=== PATIENT | female | born 1940 | race Caucasian/White ===

== ENCOUNTER 2017-06-20 12:04 | Emergency (ER) | payer OTHER, SELFPAY | END 2017-06-20 14:48 | disposition home or self-care (01) | PROVIDERS: Family Provider Internal Medicine; PCP Internal Medicine | DX: S67.190A Crushing injury of right index finger, initial encounter (principal); S61.210A Laceration without foreign body of right index finger without damage to nail, initial encounter; W23.0XXA Caught, crushed, jammed, or pinched between moving objects, initial encounter | CPT/HCPCS: 12002; 29130; 73140; 99282 ==

== ENCOUNTER → 2017-10-07 09:29 | Outpatient (CLI) | payer OTHER, SELFPAY ==
[2017-10-07 11:28] LABS: Alanine Aminotransferase 25 IU/L (9-52); Albumin 4.7 g/dL (3.5-5.0); Albumin Globulin Ratio 1.7 (1.0-2.8); Alkaline Phosphatase 72 U/L (38-126); Aspartate Aminotransferase 21 IU/L (14-36); BUN Creatinine Ratio 15.5 (6-22); Bilirubin Total 0.7 mg/dL (0.2-1.3); Blood Urea Nitrogen 17 mg/dL (7-17); Calcium 10.2 mg/dL (8.4-10.2); Carbon Dioxide 31 mmol/L (22-32); Chloride 99 mmol/L (98-107); Estimated Glomerular Filt Rate 48.4 mL/min (>60); Globulin 2.8 g/dL (1.7-4.1); Glucose 123 mg/dL (80-110); HEMOLYSIS < 15 (0-50); Magnesium 2.1 mg/dL (1.6-2.3); Potassium 5.3 mmol/L (3.4-5.1); Sodium 140 mmol/L (137-145); Total Protein 7.5 g/dL (6.3-8.2)
[2017-10-09 14:40] LABS: Lipoprofile NMR SEE SEPARATE REPORTS
== END ==
PROVIDERS: PCP Internal Medicine; Visit Provider Specialist
DX: I48.0 Paroxysmal atrial fibrillation (principal); E78.2 Mixed hyperlipidemia
CPT/HCPCS: 36415; 80053; 83704; 83735

== ENCOUNTER → 2018-03-28 12:01 | Outpatient (CLI) | payer OTHER, SELFPAY ==
--- NOTE | 2018-03-28 | DI.US.S_ITS ---
PROCEDURE: US RENAL COMPLETE INDICATIONS: CHRONIC KIDNEY DISEASE TECHNIQUE: Real-time scanning was performed of the kidneys and bladder, with image documentation. COMPARISON: None. FINDINGS: Kidneys: Kidneys are normal in size. Right kidney measures 9.7 cm long; left kidney measures 7.6 cm long. Right renal cortical thickness is 1.1 cm; left renal cortical thickness is 1.4 cm. Renal cortical echotexture is normal. No hydronephrosis or nephrolithiasis. No suspicious solid mass lesions. Bladder: Pre-void bladder volume is 243 mL. Post-void residual is 8 mL. Pre-void images demonstrate no intraluminal masses or stones. On pre-void images, both ureteral jets are noted with color Doppler interrogation. (Of note, ureteral jets may not be detectable in up to 25% of cases due to insufficient differences in specific gravity between ureteral and bladder urine). Miscellaneous: No free pelvic fluid. Shadowing gallstones are incidentally noted. IMPRESSION: Small left kidney size. No hydronephrosis. Small postvoid residual (8 cc). Gallstones incidentally noted. Dictated by: Eliezer Conde M.D. on 03/28/2018 at 13:15 Approved by: Eliezer Conde M.D. on 03/28/2018 at 13:16
== END ==
PROVIDERS: Family Provider Internal Medicine; PCP Internal Medicine; Visit Provider Student in an Organized Health Care Education/Training Program
DX: N18.9 Chronic kidney disease, unspecified (principal); K80.80 Other cholelithiasis without obstruction
CPT/HCPCS: 76770

== ENCOUNTER → 2018-04-23 10:35 | Outpatient (CLI) | payer OTHER, SELFPAY ==
[2018-04-23 10:48] LABS: Bacteria Urine None Seen; RBC Urine None Seen (0-5/HPF)
[2018-04-23 12:04] LABS: HEMOLYSIS < 15 (0-50); Iron 111 ug/dL (37-170)
[2018-04-23 12:05] LABS: BUN Creatinine Ratio 15.6 (6-22); Blood Urea Nitrogen 14 mg/dL (7-17); Calcium 9.6 mg/dL (8.4-10.2); Carbon Dioxide 29 mmol/L (22-32); Chloride 100 mmol/L (98-107); Estimated Glomerular Filt Rate > 60.0 mL/min (>60); Glucose 116 mg/dL (80-110); HEMOLYSIS < 15 (0-50); Phosphorous 4.5 mg/dL (2.8-4.1); Potassium 4.6 mmol/L (3.4-5.1); Sodium 141 mmol/L (137-145)
[2018-04-23 12:16] LABS: Percent Iron Saturation 36 % (15-50); Total Iron Binding Capacity 312 ug/dL (265-497); Transferrin 241 mg/dL (206-381)
[2018-04-23 12:42] LABS: Ferritin 29.3 ng/mL (11.1-264)
[2018-04-23 13:56] LABS: Appearance Urine UA CLEAR; Bilirubin Urine UA NEGATIVE (NEGATIVE); Color Urine UA YELLOW; Glucose Urine UA NEGATIVE (Negative); Ketones Urine UA NEGATIVE (NEGATIVE); Leukocyte Esterase Urine UA NEGATIVE (NEGATIVE); Nitrite Urine UA NEGATIVE (Negative); Occult Blood Urine UA NEGATIVE (Negative); Protein Urine UA NEGATIVE (Negative); Specific Gravity Urine UA 1.015 (1.000-1.035); Urobilinogen Urine UA 0.2 E.U./dL (0.2)
[2018-04-23 14:15] LABS: Culture Indicated Urine Cult Not Indicated; Squamous Epithelial Cell Urine 0-1 /HPF; WBC Urine 0-1/HPF (0-5/HPF)
[2018-04-23 18:01] LABS: Creatinine Urine Random 97.3 mg/dL; Protein (Total) Urine Random 8 mg/dL (0-12); Protein Creatinine Ratio Urine 0.08 GRAM/24H
[2018-04-26 15:58] LABS: Parathyroid Hormone Int 53 pg/mL (14-64)
== END ==
PROVIDERS: PCP Internal Medicine; Visit Provider Student in an Organized Health Care Education/Training Program
DX: N05.9 Unspecified nephritic syndrome with unspecified morphologic changes (principal); D50.0 Iron deficiency anemia secondary to blood loss (chronic); E83.30 Disorder of phosphorus metabolism, unspecified; N30.00 Acute cystitis without hematuria; R80.9 Proteinuria, unspecified
CPT/HCPCS: 36415; 80048; 81001; 82570; 82728; 83540; 83550; 83970; 84100; 84156

== ENCOUNTER 2018-06-11 12:17 | Day surgery (SDC) | payer OTHER, SELFPAY ==
--- NOTE | 2018-06-11 | PATH_ITS ---
[facility] Accession Number: [id number] . 01 Material submitted: . sigmoid colon - SIGMOID POLYP . 02 Diagnosis: Sigmoid Colon, Polyp, Biopsy: Favor hyperplastic polyp. [facility] . 02 Electronically signed: . Eleanor Trevino MD, Pathologist NPI- [id number] . 01 Gross description: . SIGMOID POLYP: Received in formalin is 1 fragment(s) of agrcia, soft tissue measuring 0.3 x 0.2 x 0.1 cm which is entirely submitted and submitted entirely in 1 cassette(s) /DMC /DMC . 02 Pathologist provided ICD-10: K63.5 . 02 CPT . 074142 Performed at: 01 [facility] [address] [id number] MD Timo Carrera MD Phone: [phone] Performed at: 02 [facility] [address] [place], [place] [id number] MD Eleanor Trevino MD Phone: [phone]
[2018-06-11 13:07] VITALS: BMI 22.0
[2018-06-11 13:11] VITALS: BP 131/66; PULSE 65; RESP 20; TEMP 36.2; O2SAT 98
[2018-06-11] MEDS: SODIUM CHLORIDE 0.9% 1,000 ML 70 ML IV (13:25)
[2018-06-11 13:27] VITALS: BMI 22.0
--- NOTE | 2018-06-11 13:45 | P.HP_ITS ---
History of Present Illness Date Patient Seen: 06/11/18 Chief complaint: [id number] Colonoscopy Narrative: 78-year-old female on Xarelto for atrial fibrillation who is here for colon cancer screening. There is a family history of colon cancer in her father. Please refer to our office note 05/20/2018 for further details Patient History Social History household members: spouse Family & Social History Social History: household members spouse Meds Home Medications Medication Instructions Recorded Confirmed Type atorvastatin 40 mg PO DAILY 06/11/18 06/11/18 History calcium carbonate [Tums] 600 mg PO BID 06/11/18 06/11/18 History diltiazem HCl 120 mg PO DAILY 06/11/18 06/11/18 History esomeprazole magnesium [Nexium] 20 mg PO DAILY 06/11/18 06/11/18 History flecainide 100 mg PO Q12H 06/11/18 06/11/18 History losartan 25 mg PO DAILY 06/11/18 06/11/18 History metformin 500 mg PO BID 06/11/18 06/11/18 History multivitamin 1 cap PO DAILY 06/11/18 06/11/18 History [id number] acid-lutein [Diabetes 1 tab PO DAILY 06/11/18 06/11/18 History Health Formula] rivaroxaban [Xarelto] 20 mg PO QPM 06/11/18 06/11/18 History Allergies Allergy/AdvReac Type Severity Reaction Status Date / Time Sulfa (Sulfonamide Allergy Mild Hives Verified 06/11/18 13:02 Antibiotics) [SULFA (SULFONAMIDE ANTIBIOTICS)] ibuprofen Allergy Unknown Passed out Verified 06/11/18 13:02 naproxen [From Aleve] Allergy Unknown Passed out Verified 06/11/18 13:02 Exam Vital Signs (past 8 hours): - 06/11/18 13:11 Temperature 97.1 F L Pulse Rate 65 Respiratory Rate 20 Blood Pressure 131/66 Pulse Oximetry 98 Oxygen Delivery Method Room Air Narrative Exam Narrative: General: Patient is well developed, not in apparent distress Cardiovascular: Normal oral, no murmurs, rubs, or gallops; no evidence of edema; no palpable abdominal aortic aneurysm Gastrointestinal: Normoactive bowel sounds, soft, nontender, nondistended, no rebound tenderness, no hepatosplenomegaly, no evidence of hernia Assessment & Plan Assessment & Plan narrative: 78-year-old with a history of anticoagulation for atrial fibrillation and a family history of colon cancer in her father who is here for colon cancer screening. Regarding the procedure(s), the risks and potential complications, benefits, and alternatives (including not doing the procedure) were discussed with the lázaro ent. The risks include but are not limited to bleeding, splenic injury, infection, perforation which may require surgical intervention, missed lesions, and adverse reactions to sedative medicines. After a question and answer period, the patient agreed to proceed with the procedure(s) and gives informed consent.
--- NOTE | 2018-06-11 13:58 | PM.OP.ENDO ---
Operative Date/Time/Diagnoses Date of procedure: 06/11/18 Procedure Notes Procedure in detail: Surgeon: Wang Flores MD Procedure: Colonoscopy with polypectomy Preoperative diagnosis: Colon cancer screening, family history colon cancer in her father (>65) Postoperative diagnosis: Sigmoid polyp status post polypectomy, grade 2 internal hemorrhoids Medications: Conscious sedation using 3 mg IV of Midazolam and 100 mcg IV of Fentanyl Preanesthesia Assessment An H and P was performed/updated and the Px?s ASA class is 2. The procedure was discussed in detail with the patient. The potential risks and complications including infection, bleeding, missed lesions, perforation, need for surgery in case of perforation, prolonged hospital stay, and were explained. A brief question and answer period was allotted and once all questions were answered, informed consent was obtained. The patient was brought back to the procedure room and placed on standard monitoring. The patient?s vital signs were monitored continuously throughout the entire procedure. Prior to starting, a timeout was performed to confirm the patient?s identity, allergies, medications, and procedure. Procedure in detail The patient was placed in left lateral decubitus position and once adequate sedation was obtained a DEBBIE was performed. The digital rectal examination did not reveal any palpable lesions. The tip of the colonoscope was placed in the anal canal and advanced without difficulty all the way to the cecum which was identified by the appendiceal orifice and the ileocecal valve. Careful examination of all lackey of the colon was performed with irrigation of any residual stool. The patient tolerated the procedure well and will be brought back to the recovery area to be discharged once criteria are met. The prep was judged to be good/excellent and adequate to identify polyps less than 5 mm. The withdrawal time was 8 minutes. The total physician intraservice time was 14 minutes. Complications There were no complications and estimated blood loss was minimal. Recommendations: Resume previous diet Continue outPx medications; restart Xarelto today Follow up pathology results Consider repeat colonoscopy in 5 years if the polyp is adenomatous; otherwise no further screening recommended If you have any trouble with your hemorrhoids, feel free to call our office to make an appointment so you can be evaluated to see if you would be a good candidate for hemorrhoid banding An emergency contact number was given to the patient for any complications related to the procedure
[2018-06-11] MEDS: fentaNYL 250 MCG/5 ML INJ IV (14:18)
[2018-06-11] MEDS: MIDAZOLAM 5 MG/5 ML VIAL IV (14:18)
[2018-06-11 14:25] VITALS: BP 145/64; PULSE 65; RESP 14; TEMP 36.6; O2SAT 97
--- NOTE | 2018-06-11 14:27 | PM.DS.1 ---
History of Present Illness Chief complaint: [id number] Colonoscopy Narrative: 78-year-old female on Xarelto for atrial fibrillation who is here for colon cancer screening. There is a family history of colon cancer in her father. Please refer to our office note 05/20/2018 for further details Discharge Providers Discharge Date: 06/11/18 Primary care physician: Natali Fuller MD Discharge provider: Wang Flores MD Exam Vital Signs (past 8 hours): - 06/11/18 13:11 Temperature 97.1 F L Pulse Rate 65 Respiratory Rate 20 Blood Pressure 131/66 Pulse Oximetry 98 Oxygen Delivery Method Room Air Narrative Exam Narrative: General: Patient is well developed, not in apparent distress Cardiovascular: Normal rate, no murmurs, rubs, or gallops; no evidence of edema; no palpable abdominal aortic aneurysm Gastrointestinal: Normoactive bowel sounds, soft, nontender, nondistended, no rebound tenderness, no hepatosplenomegaly, no evidence of hernia Discharge Plan Discharge Plan Patient Disposition: Home Discharge Med Rec/Prescriptions Prescriptions: Continued atorvastatin 40 mg Tablet 40 mg PO DAILY RF: 0 calcium carbonate [Tums] 300 mg (750 mg) Tablet,Chewable 600 mg PO BID RF: 0 diltiazem HCl 120 mg Tablet 120 mg PO DAILY RF: 0 metformin 1,000 mg Tablet 500 mg PO BID RF: 0 losartan 25 mg Tablet 25 mg PO DAILY RF: 0 flecainide 100 mg Tablet 100 mg PO Q12H RF: 0 multivitamin Capsule 1 cap PO DAILY RF: 0 esomeprazole magnesium [Nexium] 20 mg Capsule,Delayed Release(Dr/Ec) 20 mg PO DAILY RF: 0 Diabetes Health Formula 500-250 mcg Tablet 1 tab PO DAILY RF: 0 Xarelto 20 mg Tablet 20 mg PO QPM RF: 0 Follow up/Referrals: Natali Fuller MD [Primary Care Provider] - Discharge Orders: Discharge (Order); Ordered 06/11/18 Ordered By: Wang Flores Provider Discharge Instructions Diet: Diet as Tolerated Visit Report/Discharge Packet Stand Alone Forms: Colonoscopy Result: [facility] Discharge Data Primary Care Provider: Natali Fuller Attending Provider: Wang Flores
--- NOTE | 2018-06-11 14:28 | OP_ITS ---
Operative Date/Time/Diagnoses Date of procedure: 06/11/18 Procedure Notes Procedure in detail: Surgeon: Wang Flores MD Procedure: Colonoscopy with polypectomy Preoperative diagnosis: Colon cancer screening, family history colon cancer in her father (>65) Postoperative diagnosis: Sigmoid polyp status post polypectomy, grade 2 internal hemorrhoids Medications: Conscious sedation using 3 mg IV of Midazolam and 100 mcg IV of Fentanyl Preanesthesia Assessment An H and P was performed/updated and the Px?s ASA class is 2. The procedure was discussed in detail with the patient. The potential risks and complications including infection, bleeding, missed lesions, perforation, need for surgery in case of perforation, prolonged hospital stay, and were explained. A brief question and answer period was allotted and once all questions were answered, informed consent was obtained. The patient was brought back to the procedure room and placed on standard monitoring. The patient?s vital signs were monitored continuously throughout the entire procedure. Prior to starting, a timeout was performed to confirm the patient?s identity, allergies, medications, and procedure. Procedure in detail The patient was placed in left lateral decubitus position and once adequate sedation was obtained a DEBBIE was performed. The digital rectal examination did not reveal any palpable lesions. The tip of the colonoscope was placed in the anal canal and advanced without difficulty all the way to the cecum which was identified by the appendiceal orifice and the ileocecal valve. Careful examination of all lackey of the colon was performed with irrigation of any residual stool. In the sigmoid colon, there was a 2 mm sessile polyp removed by means of cold jumbo forceps. Resection and retrieval was complete with minimal bleeding. Retroflexion was performed in the rectum which revealed grade 2 internal hemorrhoids. The patient tolerated the procedure well and will be brought back to the recovery area to be discharged once criteria are met. The prep was judged to be good/excellent and adequate to identify polyps less than 5 mm. The withdrawal time was 8 minutes. The total physician intraservice time was 14 minutes. Complications There were no complications and estimated blood loss was minimal. Recommendations: Resume previous diet Continue outPx medications; restart Xarelto today Follow up pathology results Consider repeat colonoscopy in 5 years if the polyp is adenomatous; otherwise no further screening recommended If you have any trouble with your hemorrhoids, feel free to call our office to make an appointment so you can be evaluated to see if you would be a good candidate for hemorrhoid banding An emergency contact number was given to the patient for any complications related to the procedure Signed By:<Electronically signed by Wang Flores MD>06/11/18 [id number]
[2018-06-11 14:30] VITALS: BP 114/52; PULSE 67; RESP 12; O2SAT 97
[2018-06-11 14:35] VITALS: BP 134/67; PULSE 79; RESP 12; O2SAT 97
[2018-06-11 14:36] VITALS: BP 138/78; PULSE 67; RESP 18; TEMP 36.4; O2SAT 98
[2018-06-11 15:00] VITALS: BP 154/71; PULSE 76; TEMP 36.2; O2SAT 96
== END 2018-06-11 15:12 | disposition home or self-care (01) ==
PROVIDERS: PCP Internal Medicine; Visit Provider Internal Medicine Gastroenterology
PROC: 0DJD8ZZ Inspection of Lower Intestinal Tract, Via Natural or Artificial Opening Endoscopic (ICD-10-PCS; CPT 45378; principal; 2018-06-11 14:00)
DX: Z12.11 Encounter for screening for malignant neoplasm of colon (principal); Z80.0 Family history of malignant neoplasm of digestive organs; K64.1 Second degree hemorrhoids; E11.9 Type 2 diabetes mellitus without complications; I10 Essential (primary) hypertension; Z79.01 Long term (current) use of anticoagulants; I48.0 Paroxysmal atrial fibrillation; D12.5 Benign neoplasm of sigmoid colon
CPT/HCPCS: 45380; J2250; J3010

== ENCOUNTER → 2018-06-18 10:31 | Outpatient (CLI) | payer OTHER, SELFPAY ==
--- NOTE | 2018-06-18 10:36 | DI.MG.S_ITS ---
BILATERAL DIGITAL SCREENING MAMMOGRAM 3D/2D WITH CAD: 06/18/2018 CLINICAL: Routine screening. Family history of breast cancer. Comparison is made to exams dated: 09/02/2015 mammogram, 08/30/2014 mammogram, and 08/18/2013 mammogram - [facility]. The tissue of both breasts is heterogeneously dense. This may lower the sensitivity of mammography. Current study was also evaluated with a Computer Aided Detection (CAD) system. No significant masses, calcifications, or other findings are seen in either breast. There has been no significant interval change. IMPRESSION: NEGATIVE There is no mammographic evidence of malignancy. A 1 year screening mammogram is recommended. This exam was interpreted at Station ID: [id number]. NOTE: For mammograms, a report in lay terms will be sent to the patient. Approximately 15% of breast malignancies will not be visualized mammographically. In the management of a palpable breast mass, a negative mammogram must not discourage biopsy of a clinically suspicious lesion. Electronically Signed By: Benjy saavedra/zhang:06/19/2018 11:25:16 letter sent: Normal Exam ACR BI-RADS Category 1: Negative [id number]
[2018-06-18 12:23] LABS: Alanine Aminotransferase 22 IU/L (9-52); Albumin 4.5 g/dL (3.5-5.0); Albumin Globulin Ratio 1.7 (1.0-2.8); Alkaline Phosphatase 70 U/L (38-126); Aspartate Aminotransferase 24 IU/L (14-36); Bilirubin Total 0.6 mg/dL (0.2-1.3); Blood Urea Nitrogen 14 mg/dL (7-17); Calcium 9.5 mg/dL (8.4-10.2); Carbon Dioxide 30 mmol/L (22-32); Chloride 100 mmol/L (98-107); Estimated Glomerular Filt Rate 53.9 mL/min (>60); Globulin 2.6 g/dL (1.7-4.1); Glucose 114 mg/dL (80-110); HEMOLYSIS < 15 (0-50); Magnesium 1.7 mg/dL (1.6-2.3); Potassium 4.4 mmol/L (3.4-5.1); Sodium 140 mmol/L (137-145); Total Protein 7.1 g/dL (6.3-8.2)
[2018-06-23 13:17] LABS: Lipoprofile NMR SEE SEPERATE REPORT
== END ==
PROVIDERS: PCP Internal Medicine; Referring Provider Specialist; Visit Provider Internal Medicine
DX: Z12.31 Encounter for screening mammogram for malignant neoplasm of breast (principal); Z80.3 Family history of malignant neoplasm of breast; I48.0 Paroxysmal atrial fibrillation; E78.2 Mixed hyperlipidemia; I10 Essential (primary) hypertension
CPT/HCPCS: 36415; 77063; 77067; 80053; 80299; 83704; 83735

== ENCOUNTER 2018-06-29 07:32 | Emergency (ER) | payer OTHER, SELFPAY ==
[2018-06-29 07:38] VITALS: BP 139/60; PULSE 66; RESP 12; TEMP 36.6; O2SAT 97
--- NOTE | 2018-06-29 07:55 | PC.NURSE ---
ekg@ [id number], given to dian
--- NOTE | 2018-06-29 08:52 | ED.EXTPRO ---
HPI - Extremity Problem General Chief complaint: Extremity Problem,Nontraumatic Stated complaint: thinks blood clot in left leg Time Seen by Provider: 06/29/18 08:49 Source: patient Mode of arrival: ambulatory Limitations: no limitations History of Present Illness HPI Narrative: This is a 78-year-old female comes to the emergency department with concern for DVT. Patient states about 2 weeks ago, 2 weeks last Saturday patient was on a step stool, she stepped backwards in the stool slipped out from underneath her and the leg of the stool hit her in her left leg. She had some bruising and has developed some lumps on her leg. She was told by multiple people yesterday that they thought she had a blood clot. Patient states it is slightly tender in the area. There has not been any redness. She has not had any swelling otherwise in her leg. She is able to walk and ambulate without issue. She states when she fell she did land on her buttocks and struck the back of her head although she states it was lightly. She states she had a little bit of tenderness but that has resolved. She denies any loss of consciousness, no headache, no vision changes, no nausea or vomiting she has had diarrhea chronically since she was started on metformin. She denies any urinary issues or other injuries. Patient does take Xarelto once daily for atrial fibrillation, she also has diabetes which is why she takes metformin as well as medication for blood pressure and a statin. Related Data Home Medications Medication Instructions Recorded Confirmed Diabetes Health Formula 1 tab PO DAILY 06/11/18 06/11/18 Xarelto 20 mg PO QPM 06/11/18 06/11/18 atorvastatin 40 mg PO DAILY 06/11/18 06/11/18 calcium carbonate [Tums] 600 mg PO BID 06/11/18 06/11/18 diltiazem HCl 120 mg PO DAILY 06/11/18 06/11/18 esomeprazole magnesium [Nexium] 20 mg PO DAILY 06/11/18 06/11/18 flecainide 100 mg PO Q12H 06/11/18 06/11/18 losartan 25 mg PO DAILY 06/11/18 06/11/18 metformin 500 mg PO BID 06/11/18 06/11/18 multivitamin 1 cap PO DAILY 06/11/18 06/11/18 Allergies Allergy/AdvReac Type Severity Reaction Status Date / Time Sulfa (Sulfonamide Allergy Mild Hives Verified 06/11/18 13:02 Antibiotics) [SULFA (SULFONAMIDE ANTIBIOTICS)] ibuprofen Allergy Unknown Passed out Verified 06/11/18 13:02 naproxen [From Aleve] Allergy Unknown Passed out Verified 06/11/18 13:02 Review of Systems Review of Systems ROS Unobtainable: All systems reviewed & are unremarkable except as noted in HPI and below Constitutional Denies headache(s) and Denies weakness Eyes Denies change in vision ENT Ears, Nose, Mouth, and Throat: Denies headache(s) and Denies neck pain Cardiovascular Denies chest pain, Denies syncope, Denies pedal edema, Denies edema, Denies palpitations and Denies dyspnea Respiratory Denies dyspnea Gastrointestinal Gastrointestinal: Denies abdominal pain, Denies change in bowel habits, Reports diarrhea, Denies nausea and Denies vomiting Genitourinary Denies hematuria, Denies dysuria, Denies flank pain and Denies urinary urgency Musculoskeletal Reports as per HPI, Denies back pain, Denies limited range of motion, Denies neck pain, Denies numbness, Denies stiffness, Denies tingling and Reports other (left leg has bruising and lumps) Integumentary/Breasts Reports as per HPI, Denies erythema, Denies rash, Reports unusual bruising, Denies wounds and Reports other (bumps/lumps on leg.) Neurologic Denies confusion, Denies syncope, Denies headache(s), Denies numbness, Denies sensory deficit, Denies tingling and Denies weakness Psychiatric Denies confusion Endocrine Denies palpitations [facility] Medical History (Updated 06/29/18 @ 10:28 by Laura Yepez DO) Atrial fibrillation (Chronic) Diabetes (Chronic) Dyslipidemia (Chronic) Social History household members: spouse Social History household members: spouse Exam Narrative Exam Narrative: GEN: well nourished, well appearing female, alert and oriented x 3, patient appears to be in no acute distress. HEENT: Atraumatic, pupils are equal round reactive to light, extraocular movements are intact, nares are clear, TMs are clear with no fluid, there is no conjunctival pallor. Throat is clear without any exudates, erythema, tonsillar enlargement or uvular deviation HEART: Regular rate and rhythm without murmur, clicks, rubs. LUNGS:Lungs clear to auscultation, no wheezes, rales, crackles, chest moves symmetrically ABD:bowel sounds normal, soft, non-tender, no guarding, rebound, rigidity, no masses noted, no hepatosplenomegaly MSCL: Patient has a small lump that is linear in nature over the left lateral calf that is consistent with a thrombophlebitis of a superficial vein. There is some slight bruising over the area that is greenish in color. The patient also has a couple other small areas of bruising on the lower calf that are also sort of greenish in color. No muscle atrophy, muscles strength 5/5 upper and lower extremities, full range of motion, normal gait NEURO:CN 2-12 intact, sensation normal, normal gait. Initial Vital Signs Initial Vital Signs: Vital Signs Temperature 97.8 F 06/29/18 07:38 Pulse Rate 66 06/29/18 07:38 Respiratory Rate 12 06/29/18 07:38 Blood Pressure 139/60 06/29/18 07:38 Pulse Oximetry 97 06/29/18 07:38 Course Orders Ordered: ED Orders 06/29/18 07:52 EKG-12 Lead Stat 06/29/18 09:05 CT head/brain wo con Stat US periph venous low extrem lt Stat Vital Signs - 8 hr 06/29/18 07:38 Temperature 97.8 F Pulse Rate 66 Respiratory Rate 12 Blood Pressure 139/60 Pulse Oximetry 97 MDM - Extremity (Nontraumatic) ECG Data Attestation EKG: I personally reviewed and interpreted this ECG as follows: Prior ECG tracings: available for review Interpretation: Sinus bradycardia with a rate of 57 PA interval 168 QRS of 91 and QTC of 436. Nonspecific ST changes. Patient's prior EKG from 06/24/2015 which has some what similar findings. [facility] Narrative Medical decision making narrative: Discussed with patient based on her history of being on Xarelto even though she had a late injury to the back of her head I would recommend that she have a head CT, I suspect she just has a superficial thrombophlebitis she is on Xarelto but will do a DVT ultrasound to rule out any other changes. Head CT is negative. DVT US is negative. Discharge Plan Departure Patient Disposition: Home Clinical Impression: Hematoma of right thigh Discharge Date/Time: 06/29/18 10:43 Interventions: ED Discharge Assessment Last Done: 06/29/18 10:37 Instructions: DI for Hematoma (Bruise) Activity Restrictions/Additional Instructions: Your head CT and ultrasound of your lower extremities do not show any major changes. You do have a small hematoma or bruise underneath the skin which is where that lump is in your leg. You may take ibuprofen and/or Tylenol as needed for any pain. You may use warm compresses to the affected area to help her hematoma resolved. It will take several weeks for this to completely resolve. Return for signs of infection, new redness, increasing swelling, rapidly increasing pain or other new or concerning symptoms. Prescriptions: No Action atorvastatin 40 mg Tablet 40 mg PO DAILY RF: 0 calcium carbonate [Tums] 300 mg (750 mg) Tablet,Chewable 600 mg PO BID RF: 0 diltiazem HCl 120 mg Tablet 120 mg PO DAILY RF: 0 metformin 1,000 mg Tablet 500 mg PO BID RF: 0 losartan 25 mg Tablet 25 mg PO DAILY RF: 0 flecainide 100 mg Tablet 100 mg PO Q12H RF: 0 multivitamin Capsule 1 cap PO DAILY RF: 0 esomeprazole magnesium [Nexium] 20 mg Capsule,Delayed Release(Dr/Ec) 20 mg PO DAILY RF: 0 Diabetes Health Formula 500-250 mcg Tablet 1 tab PO DAILY RF: 0 Xarelto 20 mg Tablet 20 mg PO QPM RF: 0 Referrals: Natali Fuller MD [Primary Care Provider] -
--- NOTE | 2018-06-29 09:05 | DI.CT.S_ITS ---
PROCEDURE: CT HEAD/BRAIN WO CON INDICATIONS: hit head 2 weeks ago, on xarelto. came for leg. TECHNIQUE: Noncontrast 4.5 mm thick angled axial sections acquired from the foramen magnum to the vertex, with coronal and sagittal reformats. For radiation dose reduction, the following was used: automated exposure control, adjustment of mA and/or kV according to patient size. COMPARISON: 06/24/15. FINDINGS: Image quality: Excellent. CSF spaces: Basal cisterns are patent. No extra-axial fluid collections. The ventricles are symmetric in size and shape. Brain: No intracranial bleeds or masses. Stable coarse calcifications of the pineal gland. There is minimal cerebral volume loss for age, with resultant ventricular and sulcal prominence. There are minimal periventricular and deep white matter chronic small vessel ischemic changes. There is intracranial internal carotid artery atherosclerosis. Skull and face: Calvarium and visualized facial bones appear intact, without suspicious lesions. Sinuses: Visualized sinuses and mastoids are clear. IMPRESSION: Stable CT evaluation of the head without acute intracranial abnormalities. Dictated by: Emil Bruno M.D. on 06/29/2018 at 10:08 Approved by: Emil Bruno M.D. on 06/29/2018 at 10:10
--- NOTE | 2018-06-29 09:05 | DI.US.S_ITS ---
PROCEDURE: US PERIPH VENOUS LOW EXTREM LT INDICATIONS: LEFT LEG SUPERFICIAL THROMBOPHLEBITIS. CONCERN FOR DEEP VEIN TECHNIQUE: Real-time imaging, as well as color and pulse Doppler interrogation, were performed of the lower extremity deep veins from the inguinal ligament to the popliteal fossa. COMPARISON: None. FINDINGS: The common femoral, femoral and popliteal veins are normally compressible, and free of intraluminal thrombus. Color and pulse Doppler demonstrate normal phasic intraluminal flow. There is normal augmentation response to distal compression maneuver. There is a heterogeneous, ill-defined area of subcutaneous hyperechogenicity relative to adjacent subcutaneous fat measuring approximately 3.4 x 0.8 x 1.4 cm. This was noted in the area of injury and may represent a resolving hematoma versus bruising. IMPRESSION: 1. Negative for deep venous thrombosis of the left lower extremity. 2. A 3.4 cm area of relative echogenicity to adjacent subcutaneous fat in the region of patient's pain and injury. This may represent a resolving hematoma/bruise. No internal vascularity or other suspicious findings. Recommend clinical followup for resolution. Dictated by: Emil Bruno M.D. on 06/29/2018 at 10:00 Approved by: Emil Bruno M.D. on 06/29/2018 at 10:02
[2018-06-29 10:37] VITALS: BP 131/62; PULSE 56; O2SAT 97
== END 2018-06-29 10:43 | disposition home or self-care (01) ==
PROVIDERS: Emergency Provider Emergency Medicine; PCP Internal Medicine
DX: S70.12XA Contusion of left thigh, initial encounter (principal); S09.90XA Unspecified injury of head, initial encounter; R19.7 Diarrhea, unspecified; R00.1 Bradycardia, unspecified; E11.9 Type 2 diabetes mellitus without complications; W19.XXXA Unspecified fall, initial encounter; Z79.01 Long term (current) use of anticoagulants; Z79.84 Long term (current) use of oral hypoglycemic drugs
CPT/HCPCS: 70450; 93005; 93041; 93971; 99283; 99284

== ENCOUNTER → 2018-10-28 10:36 | Outpatient (CLI) | payer OTHER, SELFPAY ==
[2018-10-28 11:23] LABS: Hematocrit 38.6 % (36-46); Hemoglobin 12.8 g/dL (12.0-16.0)
[2018-10-28 11:43] LABS: Creatinine Urine Random 46.6 mg/dL; Protein (Total) Urine Random 12 mg/dL (0-12); Protein Creatinine Ratio Urine 0.25 GRAM/24H
[2018-10-28 12:02] LABS: HEMOLYSIS < 15 (0-50); Iron 87 ug/dL (37-170)
[2018-10-28 12:05] LABS: BUN Creatinine Ratio 10.9 (6-22); Blood Urea Nitrogen 12 mg/dL (7-17); Calcium 9.7 mg/dL (8.4-10.2); Carbon Dioxide 29 mmol/L (22-32); Chloride 100 mmol/L (98-107); Estimated Glomerular Filt Rate 48.3 mL/min (>60); Glucose 120 mg/dL (80-110); HEMOLYSIS < 15 (0-50); Potassium 4.8 mmol/L (3.4-5.1); Sodium 141 mmol/L (137-145)
[2018-10-28 12:13] LABS: Percent Iron Saturation 28 % (15-50); Total Iron Binding Capacity 311 ug/dL (265-497); Transferrin 262 mg/dL (206-381)
[2018-10-31 14:53] LABS: Parathyroid Hormone Int 32 pg/mL (14-64)
== END ==
PROVIDERS: PCP Internal Medicine; Visit Provider Student in an Organized Health Care Education/Training Program
DX: N05.9 Unspecified nephritic syndrome with unspecified morphologic changes (principal); D50.0 Iron deficiency anemia secondary to blood loss (chronic); D64.9 Anemia, unspecified; N25.81 Secondary hyperparathyroidism of renal origin; R80.9 Proteinuria, unspecified
CPT/HCPCS: 36415; 80048; 82570; 82728; 83540; 83550; 83970; 84156; 85014; 85018

== ENCOUNTER → 2018-12-31 18:22 | Outpatient (ROUT) | payer OTHER, SELFPAY ==
[2018-12-31 19:07] LABS: Alanine Aminotransferase 17 IU/L (<35); Aspartate Aminotransferase 25 IU/L (14-36); Blood Urea Nitrogen 18 mg/dL (7-17); Carbon Dioxide 29 mmol/L (22-32); Chloride 98 mmol/L (98-107); Cholesterol 186 mg/dL (140-199); Estimated Glomerular Filt Rate 53.9 mL/min (>60); Glucose 108 mg/dL (80-110); HEMOLYSIS < 15 (0-50); Potassium 4.5 mmol/L (3.4-5.1); Sodium 138 mmol/L (137-145); Triglycerides 157 mg/dL (35-150)
[2018-12-31 19:13] LABS: Hemoglobin A1C% w Est Avg Glu 6.1 % (4.0-6.0)
[2018-12-31 19:23] LABS: HDL Cholesterol 58 mg/dL (40-60); LDL Cholesterol Calculated 97 mg/dL (<100)
== END ==
PROVIDERS: PCP Internal Medicine; Visit Provider Student in an Organized Health Care Education/Training Program
DX: I10 Essential (primary) hypertension (principal); E78.5 Hyperlipidemia, unspecified; E11.9 Type 2 diabetes mellitus without complications
CPT/HCPCS: 80048; 80061; 83036; 84450; 84460

== ENCOUNTER → 2019-06-10 10:34 | Outpatient (CLI) | payer OTHER, SELFPAY ==
[2019-06-10 12:03] LABS: Hematocrit 39.3 % (36-46); Hemoglobin 12.7 g/dL (12.0-16.0)
[2019-06-10 12:25] LABS: BUN Creatinine Ratio 15.7 (6-22); Blood Urea Nitrogen 16 mg/dL (7-17); Calcium 9.6 mg/dL (8.4-10.2); Carbon Dioxide 30 mmol/L (22-32); Chloride 102 mmol/L (98-107); Estimated Glomerular Filt Rate 52.5 mL/min (>60); Glucose 123 mg/dL (80-110); HEMOLYSIS < 15 (0-50); Potassium 4.4 mmol/L (3.4-5.1); Sodium 139 mmol/L (137-145)
[2019-06-10 13:04] LABS: Creatinine Urine Random 213.1 mg/dL; Protein (Total) Urine Random 8 mg/dL (0-12); Protein Creatinine Ratio Urine 0.03 GRAM/24H
[2019-06-11 06:39] LABS: Parathyroid Hormone Int 40 pg/mL (15-65)
== END ==
PROVIDERS: PCP Internal Medicine; Referring Provider Student in an Organized Health Care Education/Training Program; Visit Provider Student in an Organized Health Care Education/Training Program
DX: N05.9 Unspecified nephritic syndrome with unspecified morphologic changes (principal); D64.9 Anemia, unspecified; N25.81 Secondary hyperparathyroidism of renal origin; R80.9 Proteinuria, unspecified
CPT/HCPCS: 36415; 80048; 82570; 83970; 84156; 85014; 85018

== ENCOUNTER → 2019-06-29 08:50 | Outpatient (CLI) | payer OTHER, SELFPAY ==
[2019-06-29 10:13] LABS: Alanine Aminotransferase 17 IU/L (<35); Albumin 4.7 g/dL (3.5-5.0); Albumin Globulin Ratio 1.5 (1.0-2.8); Alkaline Phosphatase 69 U/L (38-126); Aspartate Aminotransferase 24 IU/L (14-36); BUN Creatinine Ratio 15.7 (6-22); Bilirubin Total 0.7 mg/dL (0.2-1.3); Blood Urea Nitrogen 18 mg/dL (7-17); Calcium 9.8 mg/dL (8.4-10.2); Carbon Dioxide 28 mmol/L (22-32); Chloride 101 mmol/L (98-107); Cholesterol 172 mg/dL (140-199); Estimated Glomerular Filt Rate 45.8 mL/min (>60); Globulin 3.2 g/dL (1.7-4.1); Glucose 128 mg/dL (80-110); HDL Cholesterol 51 mg/dL (40-60); HEMOLYSIS < 15 (0-50); LDL Cholesterol Calculated 87 mg/dL (<100); Potassium 4.7 mmol/L (3.4-5.1); Sodium 138 mmol/L (137-145); Total Protein 7.9 g/dL (6.3-8.2); Triglycerides 172 mg/dL (35-150)
== END ==
PROVIDERS: PCP Internal Medicine; Referring Provider Specialist; Visit Provider Specialist
DX: E78.2 Mixed hyperlipidemia (principal); I48.0 Paroxysmal atrial fibrillation
CPT/HCPCS: 36415; 80053; 80061; 83735

== ENCOUNTER → 2019-11-04 08:46 | Outpatient (CLI) | payer OTHER, SELFPAY ==
[2019-11-04 09:42] LABS: Add Manual Diff / Slide Review NO; Basophils Absolute Auto 100 /uL (0-100); Basophils Percent Auto 0.9 % (0-2); Eosinophils Absolute Auto 200 /uL (0-450); Eosinophils Percent Auto 4.1 % (2-4); Hematocrit 38.4 % (36-46); Hemoglobin 12.5 g/dL (12.0-16.0); Lymphocytes Absolute Auto 2500 /uL (1100-4500); Mean Corpuscular HGB Conc 32.6 % (30-36); Mean Corpuscular Hemoglobin 27.5 PG (26-34); Mean Corpuscular Volume 84.5 fL (80-100); Monocytes Absolute Auto 300 /uL (0-900); Monocytes Percent Auto 4.7 % (3-14); Neutrophils Absolute Auto 2900 /uL (1500-7000); Neutrophils Percent Auto 48.3 % (50-75); Platelet Count 295 X10^3/uL (150-400); Red Blood Cell Count 4.55 X10^6/uL (4.0-5.2); Red Cell Distribution Width 14.1 % (11.6-14.8)
[2019-11-04 10:43] LABS: Alanine Aminotransferase 21 IU/L (<35); Albumin 4.2 g/dL (3.5-5.0); Albumin Globulin Ratio 1.7 (1.0-2.8); Alkaline Phosphatase 74 U/L (38-126); Aspartate Aminotransferase 25 IU/L (14-36); BUN Creatinine Ratio 14.3 (6-22); Bilirubin Total 0.5 mg/dL (0.2-1.3); Blood Urea Nitrogen 14 mg/dL (7-17); Calcium 9.4 mg/dL (8.4-10.2); Carbon Dioxide 30 mmol/L (22-32); Chloride 103 mmol/L (98-107); Cholesterol 158 mg/dL (140-199); Globulin 2.5 g/dL (1.7-4.1); Glucose 112 mg/dL (80-110); HDL Cholesterol 60 mg/dL (40-60); HEMOLYSIS < 15 (0-50); LDL Cholesterol Calculated 68 mg/dL (<100); Potassium 4.6 mmol/L (3.4-5.1); Sodium 139 mmol/L (137-145); Total Protein 6.7 g/dL (6.3-8.2); Triglycerides 150 mg/dL (35-150)
== END ==
PROVIDERS: PCP Internal Medicine; Referring Provider Internal Medicine; Visit Provider Internal Medicine
DX: I10 Essential (primary) hypertension (principal); E11.9 Type 2 diabetes mellitus without complications; N18.3 Chronic kidney disease, stage 3 (moderate)
CPT/HCPCS: 36415; 80053; 80061; 85025

== ENCOUNTER → 2019-11-13 18:55 | Outpatient (ROUT) | payer OTHER, SELFPAY ==
[2019-11-13 19:17] LABS: Hemoglobin A1C% w Est Avg Glu 6.4 % (4.0-6.0)
[2019-11-13 19:45] LABS: TSH w/ Reflex to FT4 1.91 uIU/mL (0.47-4.68)
[2019-11-13 20:04] LABS: Vitamin B12 561 pg/mL (239-931)
== END ==
PROVIDERS: PCP Internal Medicine; Visit Provider Internal Medicine
DX: R20.0 Anesthesia of skin (principal); E11.9 Type 2 diabetes mellitus without complications
CPT/HCPCS: 82607; 83036; 84443

== ENCOUNTER → 2020-01-04 10:48 | Outpatient (CLI) | payer OTHER, SELFPAY ==
[2020-01-04 13:01] LABS: Hematocrit 37.4 % (36-46); Hemoglobin 12.3 g/dL (12.0-16.0)
[2020-01-04 15:37] LABS: Creatinine Urine Random 128.7 mg/dL; Protein (Total) Urine Random 8 mg/dL (0-12); Protein Creatinine Ratio Urine 0.06 GRAM/24H
[2020-01-04 15:59] LABS: BUN Creatinine Ratio 16.3 (6-22); Blood Urea Nitrogen 15 mg/dL (7-17); Calcium 9.5 mg/dL (8.4-10.2); Carbon Dioxide 27 mmol/L (22-32); Chloride 103 mmol/L (98-107); Estimated Glomerular Filt Rate 59.2 mL/min (>60); Glucose 198 mg/dL (80-110); HEMOLYSIS < 15 (0-50); Potassium 4.3 mmol/L (3.4-5.1); Sodium 138 mmol/L (137-145)
[2020-01-05 09:10] LABS: Parathyroid Hormone Int 38 pg/mL (15-65)
== END ==
PROVIDERS: PCP Internal Medicine; Referring Provider Internal Medicine; Visit Provider Specialist
DX: N05.9 Unspecified nephritic syndrome with unspecified morphologic changes (principal); D64.9 Anemia, unspecified; N25.81 Secondary hyperparathyroidism of renal origin; R80.9 Proteinuria, unspecified; E78.2 Mixed hyperlipidemia; I48.0 Paroxysmal atrial fibrillation; Z79.899 Other long term (current) drug therapy
CPT/HCPCS: 36415; 80048; 82570; 83970; 84156; 85014; 85018

== ENCOUNTER → 2020-01-07 09:51 | Outpatient (CLI) | payer OTHER, SELFPAY ==
[2020-01-07 11:57] LABS: Alanine Aminotransferase 30 IU/L (<35); Albumin 4.5 g/dL (3.5-5.0); Albumin Globulin Ratio 1.6 (1.0-2.8); Alkaline Phosphatase 72 U/L (38-126); Aspartate Aminotransferase 40 IU/L (14-36); BUN Creatinine Ratio 15.2 (6-22); Bilirubin Total 0.4 mg/dL (0.2-1.3); Blood Urea Nitrogen 15 mg/dL (7-17); Calcium 9.5 mg/dL (8.4-10.2); Carbon Dioxide 31 mmol/L (22-32); Chloride 104 mmol/L (98-107); Estimated Glomerular Filt Rate 54.4 mL/min (>60); Globulin 2.9 g/dL (1.7-4.1); Glucose 105 mg/dL (80-110); HEMOLYSIS < 15 (0-50); Magnesium 1.9 mg/dL (1.6-2.3); Potassium 4.5 mmol/L (3.4-5.1); Sodium 139 mmol/L (137-145); Total Protein 7.4 g/dL (6.3-8.2)
== END ==
PROVIDERS: PCP Internal Medicine; Referring Provider Specialist; Visit Provider Specialist
DX: E78.2 Mixed hyperlipidemia (principal); I48.0 Paroxysmal atrial fibrillation; Z79.899 Other long term (current) drug therapy
CPT/HCPCS: 36415; 80053; 80061; 80299; 83704; 83735

== ENCOUNTER → 2020-07-08 07:33 | Outpatient (CLI) | payer OTHER, SELFPAY ==
--- NOTE | 2020-07-08 07:35 | DI.ECHO.S_ITS ---
[facility] +---------+ [facility] +---------+ : : [address] : : : : [place] : : : : [phone] : : : : Phone: [phone] +---------+ Echocardiogram Report + + :Name: RENITA EVANS Study Date: 07/08/2020 Height: 64 in : :[facility] ReadingLocation: Weight: 137 lb : : Gender: Female BSA: 1.7 m2 : :: 1940 Age: 80 yrs BP: 161/81 mmHg: :Reason For Study: Chemotherapy F/U (ICD Code V67.2) : : Performed By: Charisma Gabriel : :Referring: ALLIE PETER : + + Interpretation Summary The left ventricle appears normal in size, wall thickness, and systolic function without any focal wall motion abnormalities. The ejection fraction is estimated to be 60-65%. LVEF has not changed since prior study. Left ventricular global longitudinal strain average is normal at -22.8% (normal is more negative than -20%). Diastolic parameters suggest a pseudonormalization pattern, consistent with probable elevated filling pressures. The right ventricle is normal in size and function. The right ventricular systolic pressure is estimated to be at least 41 mmHg based on an estimated right atrial pressure of 8 mm Hg. The left atrium is moderately dilated. The right atrium is borderline dilated. There is no significant valvular heart disease. The aortic root is normal size. Procedure: A two-dimensional transthoracic echocardiogram with color flow and Doppler was performed. The study quality was technically adequate. Comparison is made with the echocardiogram of 01/08/2020. The patient was in normal sinus rhythm during the exam. Left Ventricle: The left ventricle appears normal in size, wall thickness, and systolic function without any focal wall motion abnormalities. There is no ventricular septal defect visualized. The ejection fraction is estimated to be 60-65%. Left ventricular global longitudinal strain average is normal at - 22.8% (normal is more negative than -20%). Diastolic parameters suggest a pseudonormalization pattern, consistent with probable elevated filling pressures. Right Ventricle: The right ventricle is normal in size and function. Atria: The left atrium is moderately dilated. The right atrium is borderline dilated. There is no Doppler evidence for an interatrial shunt. Mitral Valve: The mitral valve leaflets are mildly calcified. There is mild mitral regurgitation. Aortic Valve: The aortic valve is not well visualized. The aortic valve is trileaflet. The aortic valve opens well. There is mild aortic valve sclerosis. There is trace aortic regurgitation. Tricuspid Valve: The tricuspid valve leaflets are thin and pliable. There is mild tricuspid regurgitation. The right ventricular systolic pressure is estimated to be at least 41 mmHg based on an estimated right atrial pressure of 8 mm Hg. Pulmonic Valve: The pulmonic valve is not well visualized. There is trace pulmonic regurgitation. There is no significant valvular heart disease. Great Vessels: The aortic root is normal size. The ascending aorta is normal in size. The aortic arch is normal in size. The IVC is of normal diameter and collapses less than 50% with a sniff. This suggests a right atrial pressure of 8 mm Hg. Pericardium/ Pleura There is no pericardial effusion. MMode/2D Measurements & Calculations LVIDd: 4.1 cm LVOT diam: 1.9 cm LVIDs: 2.4 cm Ao root diam: 2.9 cm FS: 41.6 % asc Aorta Diam: 3.0 cm EPSS: 0.19 cm Ao Arch Diam (Prox Trans): 2.3 cm IVSd: 0.84 cm LVPWd: 0.75 cm LV tariq. diameter/BSA (cm/m^2): 2.5 LV sys. diameter/BSA (cm/m^2): 1.4 LA A2 area: 24.3 cm2 RA long axis: 5.8 cm LA A4 area: 22.6 cm2 RA area: 18.3 cm2 LA length (vol): 6.2 cm RA vol: 48.9 ml LA vol: 75.2 ml RA : 29.3 ml/m2 LA vol index: 45.2 ml/m2 IVC diam: 1.7 cm RVD1 (basal): 3.0 cm TAPSE: 2.2 cm Doppler Measurements & Calculations Ao V2 max: 199.6 cm/sec LVOT Max Jonnathan: 108.2 cm/sec Ao V2 mean: 141.1 cm/sec LV V1 max P.7 mmHg Ao max P.9 mmHg LV V1 VTI: 26.9 cm Ao mean P.0 mmHg KYLEE(I,D): 1.4 cm2 Ao V2 VTI: 52.4 cm KYLEE(V,D): 1.5 cm2 sev ratio: 0.51 KYLEE indexed to BSA (cm^2/m^2): 0.84 AI P1/2t: 499.3 msec AI dec slope: 245.9 cm/sec2 MV E max jonnathan: 104.5 cm/sec TR max jonnathan: 285.6 cm/sec MV A max jonnathan: 77.5 cm/sec TR max P.6 mmHg MV E/A: 1.3 PA V2 max: 78.1 cm/sec Med Peak E' Jonnathan: 7.8 cm/sec PA V2 mean: 54.8 cm/sec E/E' med: 13.4 PA mean P.3 mmHg Lat Peak E' Jonnathan: 9.3 cm/sec PA pr(Accel): 19.9 mmHg E/E' lat: 11.2 E/e' average: 12.3 MV dec time: 0.13 sec MR ERO: 0.04 cm2 MR PISA: 0.74 cm2 SV(LVOT): 73.1 ml MR flow rate: 27.3 cm3/sec MR PISA radius: 0.34 cm Reading Physician:07:06 PM
== END ==
PROVIDERS: PCP Internal Medicine; Referring Provider Internal Medicine Hematology & Oncology; Visit Provider Internal Medicine Hematology & Oncology
DX: C50.912 Malignant neoplasm of unspecified site of left female breast (principal); I08.1 Rheumatic disorders of both mitral and tricuspid valves; Z17.1 Estrogen receptor negative status [ER-]
CPT/HCPCS: 93306

== ENCOUNTER → 2020-07-19 10:56 | Outpatient (CLI) | payer OTHER, SELFPAY ==
[2020-07-19 12:02] LABS: Add Manual Diff / Slide Review NO; Basophils Absolute Auto 0 /uL (0-100); Basophils Percent Auto 0.8 % (0-2); Eosinophils Absolute Auto 100 /uL (0-450); Eosinophils Percent Auto 2.1 % (2-4); Hematocrit 34.7 % (36-46); Hemoglobin 11.4 g/dL (12.0-16.0); Lymphocytes Absolute Auto 2300 /uL (1100-4500); Lymphocytes Percent Auto 39.7 % (25-40); Mean Corpuscular HGB Conc 32.9 % (30-36); Mean Corpuscular Volume 85.2 fL (80-100); Monocytes Absolute Auto 400 /uL (0-900); Monocytes Percent Auto 6.4 % (3-14); Neutrophils Absolute Auto 2900 /uL (1500-7000); Platelet Count 342 X10^3/uL (150-400); Red Blood Cell Count 4.07 X10^6/uL (4.0-5.2); Red Cell Distribution Width 17.7 % (11.6-14.8); White Blood Cell Count 5.7 X10^3/uL (4.5-11.0)
[2020-07-19 12:09] LABS: Hemoglobin A1C% w Est Avg Glu 6.4 % (4.0-6.0)
[2020-07-19 12:19] LABS: Alanine Aminotransferase 19 IU/L (<35); Albumin 4.5 g/dL (3.5-5.0); Albumin Globulin Ratio 1.5 (1.0-2.8); Alkaline Phosphatase 62 U/L (38-126); Aspartate Aminotransferase 28 IU/L (14-36); BUN Creatinine Ratio 18.1 (6-22); Bilirubin Total 0.4 mg/dL (0.2-1.3); Blood Urea Nitrogen 19 mg/dL (7-17); Calcium 9.8 mg/dL (8.4-10.2); Carbon Dioxide 25 mmol/L (22-32); Chloride 102 mmol/L (98-107); Cholesterol 148 mg/dL (140-199); Estimated Glomerular Filt Rate 50.7 mL/min (>60); Glucose 130 mg/dL (80-110); HDL Cholesterol 52 mg/dL (40-60); HEMOLYSIS < 15 (0-50); LDL Cholesterol Calculated 65 mg/dL (<100); Potassium 4.8 mmol/L (3.4-5.1); Sodium 136 mmol/L (137-145); Total Protein 7.5 g/dL (6.3-8.2); Triglycerides 156 mg/dL (35-150)
[2020-07-21 12:42] LABS: Cholesterol, Total 150 mg/dL (100-199); HDL-Cholesterol 56 mg/dL (>39); HDL-Particle (Total) 38.6 umol/L (>=30.5); LDL Particle 1033 nmol/L (<1000); LDL Size 20.6 nm (>20.5); LDL-Cholsterol 68 mg/dL (0-99); LP-IR Score 66 (<=45); Small LDL- Particle 658 nmol/L (<=527); Triglycerides 156 mg/dL (0-149)
== END ==
PROVIDERS: Internal Medicine Hematology & Oncology; PCP Internal Medicine; Referring Provider Internal Medicine; Visit Provider Internal Medicine
DX: E78.2 Mixed hyperlipidemia (principal); I10 Essential (primary) hypertension; E11.8 Type 2 diabetes mellitus with unspecified complications; I48.0 Paroxysmal atrial fibrillation; E78.49 Other hyperlipidemia; C50.912 Malignant neoplasm of unspecified site of left female breast; Z17.1 Estrogen receptor negative status [ER-]
CPT/HCPCS: 36415; 80053; 80061; 83036; 83704; 83735; 85025

== ENCOUNTER → 2020-08-16 15:25 | Outpatient (CLI) | payer OTHER, SELFPAY ==
[2020-08-16 16:43] LABS: BUN Creatinine Ratio 24.8 (6-22); Blood Urea Nitrogen 32 mg/dL (7-17); Calcium 9.7 mg/dL (8.4-10.2); Carbon Dioxide 25 mmol/L (22-32); Chloride 102 mmol/L (98-107); Glucose 111 mg/dL (80-110); HEMOLYSIS < 15 (0-50); Potassium 4.8 mmol/L (3.4-5.1); Sodium 138 mmol/L (137-145)
[2020-08-16 16:49] LABS: Hematocrit 34.3 % (36-46); Hemoglobin 11.2 g/dL (12.0-16.0)
[2020-08-16 18:28] LABS: Creatinine Urine Random 196.5 mg/dL; Protein (Total) Urine Random 6 mg/dL (0-12); Protein Creatinine Ratio Urine 0.03 GRAM/24H
[2020-08-17 09:49] LABS: Parathyroid Hormone Int 39 pg/mL (15-65)
== END ==
PROVIDERS: PCP Internal Medicine; Referring Provider Student in an Organized Health Care Education/Training Program; Visit Provider Student in an Organized Health Care Education/Training Program
DX: N05.9 Unspecified nephritic syndrome with unspecified morphologic changes (principal); D64.9 Anemia, unspecified; N25.81 Secondary hyperparathyroidism of renal origin; R80.9 Proteinuria, unspecified
CPT/HCPCS: 36415; 80048; 82570; 83970; 84156; 85014; 85018

== ENCOUNTER → 2020-09-15 11:10 | Outpatient (CLI) | payer OTHER, SELFPAY ==
[2020-09-15 12:14] LABS: BUN Creatinine Ratio 18.6 (6-22); Blood Urea Nitrogen 19 mg/dL (7-17); Calcium 9.4 mg/dL (8.4-10.2); Carbon Dioxide 27 mmol/L (22-32); Chloride 99 mmol/L (98-107); Estimated Glomerular Filt Rate 52.4 mL/min (>60); Glucose 124 mg/dL (80-110); HEMOLYSIS < 15 (0-50); Potassium 5.2 mmol/L (3.4-5.1); Sodium 132 mmol/L (137-145)
== END ==
PROVIDERS: PCP Internal Medicine; Referring Provider Student in an Organized Health Care Education/Training Program; Visit Provider Student in an Organized Health Care Education/Training Program
DX: N05.9 Unspecified nephritic syndrome with unspecified morphologic changes (principal)
CPT/HCPCS: 36415; 80048

== ENCOUNTER → 2020-09-21 14:20 | Outpatient (CLI) | payer OTHER, SELFPAY ==
[2020-09-21 16:05] LABS: HEMOLYSIS < 15 (0-50); Potassium 4.1 mmol/L (3.4-5.1)
== END ==
PROVIDERS: PCP Internal Medicine; Referring Provider Student in an Organized Health Care Education/Training Program; Visit Provider Student in an Organized Health Care Education/Training Program
DX: E87.5 Hyperkalemia (principal)
CPT/HCPCS: 36415; 84132

== ENCOUNTER → 2020-10-06 08:51 | Outpatient (CLI) | payer OTHER, SELFPAY ==
--- NOTE | 2020-10-06 08:52 | DI.ECHO.S_ITS ---
[facility] +---------+ [facility] +---------+ : : [address] : : : : [place] : : : : [phone] : : : : Phone: [phone] : : [phone] +---------+ Echocardiogram Report + + :Name: RENITA EVANS Study Date: 10/06/2020 Height: 64 in : :[facility] ReadingLocation: Weight: 134 lb : : Gender: Female BSA: 1.6 m2 : :: 1940 Age: 80 yrs BP: 153/82 mmHg: :Reason For Study: CANCER : :Ordering Physician: BRITTANI, : :ALLIE Performed By: Jackson Parker : :Referring: ALLIE PETER : + + Interpretation Summary Left ventricular systolic function remains normal with an estimated ejection fraction of 60 to 65% without any focal wall motion abnormality and visually appears unchanged from the previous study. The left ventricular global longitudinal strain average is -19% and is likely normal for the echocardiographic equipment used today. While slightly lower compared to the - 22.8% on the previous study, this difference is likely due to the difference in echo imaging equipment rather than any clinical difference. The left ventricle appears normal in size and wall thickness. Diastolic function is likely normal with probable normal filling pressures. There has been no significant change from the previous study. The right ventricle appears normal in size and systolic function and unchanged from the previous study. Right ventricular systolic pressure is likely around 30 mmHg with a CVP of 3 mmHg, and is likely slightly lower compared to the previous study. Both atria are grossly normal in size although the right atrium cannot be definitively measured. Left atrial size is likely significantly smaller compared to the previous study. There is mild mitral and mild tricuspid regurgitation that appears unchanged since the previous study but no other significant valvular abnormality. Procedure: A two-dimensional transthoracic echocardiogram with color flow and Doppler was performed. The study quality was technically adequate. Comparison is made with the echocardiogram of 07/08/2020. The patient was in sinus rhythm with heart rates between 55-59 bpm during the exam. Left Ventricle: The left ventricle appears normal in size, wall thickness, and systolic function without any focal wall motion abnormalities. The ejection fraction is estimated to be 60-65%. Left ventricular global longitudinal strain average is normal at -19% (normal is more negative than - 20%). There are no focal wall motion abnormalities. Diastolic parameters suggest probable normal left ventricular diastolic function and normal filling pressures. There has been no significant change since the previous study. Right Ventricle: The right ventricle is normal in size and function. This is unchanged compared to the previous study. Atria: Both atria are normal in size. The left atrium has significantly decreased in size since the prior echo exam. There is no Doppler evidence for an interatrial shunt. Mitral Valve: There is mild mitral annular calcification. There is mild mitral regurgitation. This is unchanged compared to the previous study. Aortic Valve: The aortic valve is slightly calcified. The aortic valve opens well. There is no aortic valve stenosis. There is trace aortic regurgitation. Tricuspid Valve: The tricuspid valve is normal in structure and function. There is mild tricuspid regurgitation. This is unchanged compared to the previous study. The right ventricular systolic pressure is estimated to be at least 30 mmHg based on an estimated right atrial pressure of 3 mm Hg. This is slightly lower compared to the previous study. Pulmonic Valve: The pulmonic valve is not well visualized. There is trace pulmonic regurgitation. Great Vessels: The aortic root is normal size. The dimensions of the ascending aorta are normal. The IVC is of normal diameter and collapses greater than 50% with a sniff. This suggests a low right atrial pressure of 3 mm Hg. Pericardium/ Pleura There is no pericardial effusion. There is no pleural effusion. MMode/2D Measurements & Calculations LVIDd: 4.1 cm LVOT diam: 1.9 cm LVIDs: 2.7 cm Ao root diam: 2.8 cm FS: 34.1 % asc Aorta Diam: 2.9 cm IVSd: 0.90 cm LVPWd: 0.90 cm LV tariq. diameter/BSA (cm/m^2): 2.5 LV sys. diameter/BSA (cm/m^2): 1.6 LA dimension: 3.1 cm RA long axis: 5.5 cm LA A2 area: 14.9 cm2 LA A4 area: 16.3 cm2 LA length (vol): 5.5 cm LA vol: 37.8 ml LA vol index: 22.9 ml/m2 TAPSE_phl: 2.2 cm Doppler Measurements & Calculations Ao V2 max: 168.0 cm/sec LVOT Max Jonnathan: 97.9 cm/sec Ao V2 mean: 117.0 cm/sec LV V1 max P.8 mmHg Ao max P.0 mmHg LV V1 VTI: 24.1 cm Ao mean P.0 mmHg KYLEE(I,D): 1.6 cm2 Ao V2 VTI: 42.0 cm KYLEE(V,D): 1.7 cm2 sev ratio: 0.57 KYLEE indexed to BSA (cm^2/m^2): 0.99 MV E max jonnathan: 107.0 cm/sec TR max jonnathan: 259.0 cm/sec MV A max jonnathan: 84.4 cm/sec TR max P.8 mmHg MV E/A: 1.3 PA V2 max: 64.6 cm/sec Med Peak E' Jonnathan: 7.8 cm/sec PA V2 mean: 47.7 cm/sec E/E' med: 13.7 PA mean P.0 mmHg Lat Peak E' Jonnathan: 10.0 cm/sec PA pr(Accel): 37.6 mmHg E/E' lat: 10.7 E/e' average: 12.2 MV dec time: 0.23 sec SV(LVOT): 68.3 ml AV VR_phl: 0.58 KYLEE(VTI)/BSA_phl: 0.99 MV P1/2t-pr_phl: 67.0 msec Reading Physician:10:36 AM
== END ==
PROVIDERS: PCP Internal Medicine; Referring Provider Internal Medicine Hematology & Oncology; Visit Provider Internal Medicine Hematology & Oncology
DX: C50.912 Malignant neoplasm of unspecified site of left female breast (principal); I08.1 Rheumatic disorders of both mitral and tricuspid valves; Z17.1 Estrogen receptor negative status [ER-]
CPT/HCPCS: 93306

== ENCOUNTER → 2021-01-24 11:59 | Outpatient (CLI) | payer OTHER, SELFPAY ==
[2021-01-24 13:49] LABS: Hematocrit 36.7 % (36-46); Hemoglobin 12.1 g/dL (12.0-16.0)
[2021-01-24 14:55] LABS: BUN Creatinine Ratio 14.6 (6-22); Blood Urea Nitrogen 18 mg/dL (7-17); Calcium 9.4 mg/dL (8.4-10.2); Carbon Dioxide 29 mmol/L (22-32); Chloride 96 mmol/L (98-107); Estimated Glomerular Filt Rate 42.2 mL/min (>60); Glucose 111 mg/dL (80-110); HEMOLYSIS < 15 (0-50); Potassium 5.1 mmol/L (3.4-5.1); Sodium 135 mmol/L (137-145)
[2021-01-24 15:43] LABS: Creatinine Urine Random 98.2 mg/dL; Protein (Total) Urine Random 7 mg/dL (0-12); Protein Creatinine Ratio Urine 0.07 GRAM/24H
[2021-01-25 10:07] LABS: Parathyroid Hormone Int 41 pg/mL (15-65)
== END ==
PROVIDERS: PCP Internal Medicine; Referring Provider Student in an Organized Health Care Education/Training Program; Visit Provider Student in an Organized Health Care Education/Training Program
DX: N05.9 Unspecified nephritic syndrome with unspecified morphologic changes (principal); D64.9 Anemia, unspecified; N25.81 Secondary hyperparathyroidism of renal origin; R80.9 Proteinuria, unspecified
CPT/HCPCS: 36415; 80048; 82570; 83970; 84156; 85014; 85018

== ENCOUNTER → 2021-01-26 07:33 | Outpatient (CLI) | payer OTHER, SELFPAY ==
--- NOTE | 2021-01-26 07:34 | DI.ECHO.S_ITS ---
[facility]---------+ [facility] +---------+ : : [address] : : : : [place], [place] : : : : [phone] : : : : Phone: [phone] : : [phone] +---------+ Echocardiogram Report + + :Name: RENITA EVANS Study Date: 01/26/2021 Height: 64 in : :[facility] ReadingLocation: Weight: 140 lb : : Gender: Female BSA: 1.7 m2 : :: 1940 Age: 80 yrs BP: 143/77 mmHg: :Reason For Study: HERCEPTIN, 3 MONTH CHECK FOR HEART FUNCTION : :Ordering Physician: BRITTANI, : :ALLIE Performed By: Vanessa Morrison : :Referring: ALLIE PETER : + + Interpretation Summary Left ventricular systolic function visually appears to be well preserved and unchanged from the previous study with an ejection fraction of 60 to 65% without any focal wall motion abnormality. However, left ventricular strain has decreased slightly to -17.4%, compared to -19.0% on the previous study and -22.8% on the study from 07/08/2020, suggesting a possible slight decline in systolic function. Left ventricular size and wall thickness remain normal and unchanged. Diastolic function is somewhat challenging to assess because of contradictory data but is likely unchanged from the previous exam although the E/A ratio has increased from 1.3 to 1.5, suggesting the possibility of increased filling pressures. The right ventricle remains normal in size and systolic function. Right ventricular systolic pressure is estimated at 27 mmHg with a CVP of 3 mmHg, similar to the previous exam. There is mild left atrial enlargement which measures larger compared to the previous study. There is mild to moderate mitral regurgitation and mild tricuspid regurgitation, the former perhaps slightly more prominent compared to the previous exam but grossly unchanged. There is no other significant valvular abnormality. Procedure: A two-dimensional transthoracic echocardiogram with color flow and Doppler was performed. The study quality was technically adequate. Comparison is made with the echocardiogram of 10/06/2020. The patient was in sinus bradycardia with heart rates between 49-58 bpm during the exam. Left Ventricle: The left ventricle is normal in size and wall thickness. The estimated left ventricular end diastolic volume is 59 ml. The ejection fraction is estimated to be 60-65%. This is unchanged compared to the previous study. Left ventricular global longitudinal strain average is -17.4%. This is slightly lower compared to the previous study. Diastolic function could not be accurately assessed due to contradictory data. This is unchanged compared to the previous study. Right Ventricle: The right ventricle is normal in size and function. This is unchanged compared to the previous study. Atria: The left atrium is mildly dilated. The left atrium has mildly increased in size since the prior echo exam. Right atrial size is normal. There is no Doppler evidence for an interatrial shunt. Mitral Valve: The mitral valve is normal in structure and function. There is mild mitral annular calcification. There is mild to moderate mitral regurgitation. This is unchanged, perhaps slightly worse compared to the previous study. Aortic Valve: The aortic valve is trileaflet. The aortic valve is slightly calcified. The aortic valve opens well. There is no aortic valve stenosis. There is trace aortic regurgitation. Tricuspid Valve: The tricuspid valve is normal in structure and function. There is mild tricuspid regurgitation. The right ventricular systolic pressure is estimated to be at least 27 mmHg based on an estimated right atrial pressure of 3 mm Hg. This is unchanged compared to the previous study. Pulmonic Valve: The pulmonic valve is not well seen, but is grossly normal. There is trace pulmonic regurgitation. Great Vessels: The aortic root is normal size. The dimensions of the ascending aorta are normal. The IVC is of normal diameter and collapses greater than 50% with a sniff. This suggests a low right atrial pressure of 3 mm Hg. Pericardium/ Pleura There is no pericardial effusion. There is no pleural effusion. MMode/2D Measurements & Calculations LVIDd: 4.0 cm LVOT diam: 1.9 cm LVIDs: 2.6 cm Ao root diam: 2.6 cm FS: 35.1 % asc Aorta Diam: 3.0 cm IVSd: 0.86 cm Ao Arch Diam (Prox Trans): 2.4 cm LVPWd: 0.72 cm LV tariq. diameter/BSA (cm/m^2): 2.4 LV sys. diameter/BSA (cm/m^2): 1.6 LA A2 area: 22.0 cm2 RA long axis: 5.7 cm LA A4 area: 21.0 cm2 RA area: 18.0 cm2 LA length (vol): 6.1 cm RA vol: 48.4 ml LA vol: 64.0 ml RA : 28.8 ml/m2 LA vol index: 38.1 ml/m2 IVC diam: 1.3 cm RVD1 (basal): 3.3 cm RVD2 (mid): 2.9 cm Doppler Measurements & Calculations Ao V2 max: 152.7 cm/sec LVOT Max Ernesto: 97.0 cm/sec Ao V2 mean: 103.9 cm/sec LV V1 max P.8 mmHg Ao max P.3 mmHg LV V1 VTI: 24.8 cm Ao mean P.8 mmHg KYLEE(I,D): 1.9 cm2 Ao V2 VTI: 39.2 cm KYLEE(V,D): 1.9 cm2 sev ratio: 0.63 KYLEE indexed to BSA (cm^2/m^2): 1.1 MV E max ernesto: 98.3 cm/sec TR max ernesto: 246.3 cm/sec MV A max ernesto: 65.6 cm/sec TR max P.3 mmHg MV E/A: 1.5 PA V2 max: 81.2 cm/sec Med Peak E' Ernesto: 6.3 cm/sec PA V2 mean: 56.8 cm/sec E/E' med: 15.5 PA mean P.4 mmHg Lat Peak E' Ernesto: 9.8 cm/sec E/E' lat: 10.0 E/e' average: 12.7 MV dec time: 0.27 sec SV(LVOT): 72.8 ml Reading Physician:09:20 AM
== END ==
PROVIDERS: PCP Internal Medicine; Referring Provider Internal Medicine Hematology & Oncology; Visit Provider Internal Medicine Hematology & Oncology
DX: C50.912 Malignant neoplasm of unspecified site of left female breast (principal); I08.1 Rheumatic disorders of both mitral and tricuspid valves; Z17.1 Estrogen receptor negative status [ER-]; Z92.21 Personal history of antineoplastic chemotherapy
CPT/HCPCS: 93306; 93356

== ENCOUNTER → 2021-05-18 09:12 | Outpatient (CLI) | payer OTHER, SELFPAY ==
--- NOTE | 2021-05-18 09:16 | DI.US.S_ITS ---
LIMITED ULTRASOUND OF LEFT BREAST: 05/18/2021 CLINICAL: Palpable left breast lump. Comparison is made to exams dated: 05/18/2021 mammogram - [facility], 03/06/2021 mammogram, 01/26/2020 mammogram, 01/26/2020 ultrasound biopsy, 01/15/2020 ultrasound, and 01/15/2020 mammogram - [facility]. Color flow and real-time ultrasound of the left breast 10 o'clock region were performed. Pinzon scale images of the real-time examination were reviewed. There is a 0.7 cm irregular area of possible focal edema in the left breast at 10 o'clock posterior depth 8 cm from the nipple just deep to the skin. This area is of mixed echogenicity. This correlates as palpated. Color flow imaging demonstrates that there is an adjacent vascularity. No mass lesion is demonstrated. The post-operative findings are located at 12:00 on the prior ultrasound. The patient reports that the palpable area is decreasing. IMPRESSION: PROBABLY BENIGN The 0.7 cm area of possible focal edema in the left breast is probably benign. A follow-up ultrasound in 6 months is recommended to demonstrate resolution. Exam findings were conveyed to the patient. Patient is advised to monitor for significant change. Clinical follow-up is recommended. Patient reports that the palpable area is decreasing. The diffuse breast edema is also decreasing. This exam was interpreted at Station ID: [id number]. Electronically Signed By: Valentino Story M.D. slc/:05/18/2021 11:01:05 letter sent: Followup Recommended Ultrasound BI-RADS: 3 Probably benign
--- NOTE | 2021-05-18 09:16 | DI.MG.S_ITS ---
UNILATERAL LEFT DIGITAL DIAGNOSTIC MAMMOGRAM 3D/2D: 05/18/2021 CLINICAL: Palpable left breast lump. Comparison is made to exams dated: 01/26/2020 mammogram, 03/06/2021 mammogram, 01/15/2020 mammogram, 01/26/2020 ultrasound biopsy, 01/15/2020 ultrasound - [facility], and 06/18/2018 mammogram - [facility]. The tissue of left breast is heterogeneously dense. This may lower the sensitivity of mammography. No significant masses, calcifications, or other findings are seen in the breast. Post operative findings in the left breast. Mild left breast skin thickening. IMPRESSION: INCOMPLETE: NEEDS ADDITIONAL IMAGING EVALUATION No mass or significant calcifications identified. Post-operative findings are significantly changed. A targeted ultrasound of the palpable abnormality is recommended and will immediately follow. This exam was interpreted at Station ID: [id number]. NOTE: For mammograms, a report in lay terms will be sent to the patient. Approximately 15% of breast malignancies will not be visualized mammographically. In the management of a palpable breast mass, a negative mammogram must not discourage biopsy of a clinically suspicious lesion. Electronically Signed By: Valentino Story M.D. slc/:05/18/2021 10:03:34 ACR BI-RADS Category 0: Incomplete [id number]
== END ==
PROVIDERS: PCP Family Medicine; Referring Provider Internal Medicine Hematology & Oncology; Visit Provider Internal Medicine Hematology & Oncology
DX: N63.20 Unspecified lump in the left breast, unspecified quadrant (principal); C50.912 Malignant neoplasm of unspecified site of left female breast; Z17.1 Estrogen receptor negative status [ER-]; R92.2 Inconclusive mammogram
CPT/HCPCS: 76642; 77065; G0279

== ENCOUNTER → 2021-05-22 10:49 | Outpatient (CLI) | payer OTHER, SELFPAY ==
[2021-05-22 12:50] LABS: Alanine Aminotransferase 17 IU/L (<35); Albumin 4.5 g/dL (3.5-5.0); Albumin Globulin Ratio 1.6 (1.0-2.8); Alkaline Phosphatase 65 U/L (38-126); Aspartate Aminotransferase 26 IU/L (14-36); BUN Creatinine Ratio 10.2 (6-22); Bilirubin Total 0.6 mg/dL (0.2-1.3); Blood Urea Nitrogen 12 mg/dL (7-17); Calcium 9.4 mg/dL (8.4-10.2); Carbon Dioxide 28 mmol/L (22-32); Chloride 101 mmol/L (98-107); Estimated Glomerular Filt Rate 44.2 mL/min (>60); Globulin 2.9 g/dL (1.7-4.1); Glucose 125 mg/dL (80-110); HEMOLYSIS < 15 (0-50); Potassium 4.6 mmol/L (3.4-5.1); Sodium 137 mmol/L (137-145); Total Protein 7.4 g/dL (6.3-8.2)
[2021-05-25 10:04] LABS: Cholesterol, Total 161 mg/dL (100-199); HDL-Cholesterol 60 mg/dL (>39); HDL-Particle (Total) 44.5 umol/L (>=30.5); LDL Particle 1036 nmol/L (<1000); LDL Size 20.5 nm (>20.5); LDL-Cholsterol 72 mg/dL (0-99); LP-IR Score 61 (<=45); Small LDL- Particle 509 nmol/L (<=527); Triglycerides 175 mg/dL (0-149)
== END ==
PROVIDERS: PCP Family Medicine; Visit Provider Specialist
DX: I48.0 Paroxysmal atrial fibrillation (principal); E78.2 Mixed hyperlipidemia; Z79.899 Other long term (current) drug therapy
CPT/HCPCS: 36415; 80053; 80061; 80299; 83704; 83735

== ENCOUNTER → 2021-05-25 15:43 | Outpatient (CLI) | payer OTHER, SELFPAY ==
--- NOTE | 2021-05-25 15:44 | DI.ECHO.S_ITS ---
[facility] +---------+ Hospital +---------+ : : [address] : : : : [place] : : : : [phone] : : : : Phone: [phone] : : [phone] +---------+ Echocardiogram Report + + :Name: RENITA EVANS Study Date: 05/25/2021 Height: 64 in : :[facility] ReadingLocation: Weight: 140 lb : : Gender: Female BSA: 1.7 m2 : :: 1940 Age: 81 yrs BP: 175/89 mmHg: :Reason For Study: BREAST CANCER : :Ordering Physician: BRITTANI, : :ALLIE Performed By: Vanessa Morrison : :Referring: ALLIE PETER : + + Interpretation Summary The left ventricle is normal in size and wall thickness.Left ventricular ejection fraction is estimated to be 65 +/- 5%. Previous LV ejection fraction 60 to 65% Left ventricular global longitudinal strain average is -20.4%. Previous strain -17.4%. The right ventricle is normal in size and function. The IVC is of normal diameter and collapses greater than 50% with a sniff. This suggests a low right atrial pressure of 3 mm Hg. Procedure: The study quality was technically adequate. Comparison is made with the echocardiogram of 01/26/2022. A two-dimensional transthoracic echocardiogram with color flow and Doppler was performed in limited views only to assess ejection fraction and wall motion.. The patient was in sinus rhythm with heart rates between 53-66 bpm during the exam. Left Ventricle: The left ventricle is normal in size and wall thickness. There is no thrombus. Left ventricular global longitudinal strain average is - 20.4%. Left ventricular ejection fraction is estimated to be 65 +/- 5%. There are no focal wall motion abnormalities. Right Ventricle: The right ventricle is normal in size and function. Atria: The left atrial size is normal. Right atrial size is normal. Great Vessels: The dimensions of the ascending aorta are normal. The IVC is of normal diameter and collapses greater than 50% with a sniff. This suggests a low right atrial pressure of 3 mm Hg. Pericardium/ Pleura There is no pericardial effusion. There is no pleural effusion. MMode/2D Measurements & Calculations LVIDd: 3.9 cm LVOT diam: 1.9 cm LVIDs: 2.5 cm Ao root diam: 2.7 cm FS: 36.4 % asc Aorta Diam: 2.9 cm IVSd: 0.89 cm LVPWd: 0.89 cm LV tariq. diameter/BSA (cm/m^2): 2.3 LV sys. diameter/BSA (cm/m^2): 1.5 LA A2 area: 19.9 cm2 RA long axis: 5.3 cm LA A4 area: 19.2 cm2 RA area: 16.0 cm2 LA length (vol): 6.0 cm RA vol: 41.2 ml LA vol: 54.3 ml RA : 24.5 ml/m2 LA vol index: 32.3 ml/m2 IVC diam: 1.0 cm RVD1 (basal): 3.1 cm TAPSE: 1.8 cm Reading Physician:05:17 PM
== END ==
PROVIDERS: PCP Family Medicine; Referring Provider Internal Medicine Hematology & Oncology; Visit Provider Internal Medicine Hematology & Oncology
DX: C50.912 Malignant neoplasm of unspecified site of left female breast (principal); Z17.1 Estrogen receptor negative status [ER-]
CPT/HCPCS: 93307; 93356

== ENCOUNTER → 2021-07-26 10:25 | Outpatient (CLI) | payer OTHER, SELFPAY | PROVIDERS: PCP Family Medicine; Referring Provider Family Medicine; Visit Provider Family Medicine | DX: Z78.0 Asymptomatic menopausal state (principal); Z13.820 Encounter for screening for osteoporosis; M85.851 Other specified disorders of bone density and structure, right thigh; M85.852 Other specified disorders of bone density and structure, left thigh; Z80.3 Family history of malignant neoplasm of breast; Z90.710 Acquired absence of both cervix and uterus; Z79.890 Hormone replacement therapy | CPT/HCPCS: 77080 ==

== ENCOUNTER → 2021-09-18 09:34 | Outpatient (CLI) | payer OTHER, SELFPAY ==
[2021-09-18 09:59] LABS: Add Manual Diff / Slide Review NO; Basophils Absolute Auto 0 /uL (0-100); Basophils Percent Auto 0.7 % (0-2); Eosinophils Absolute Auto 200 /uL (0-450); Eosinophils Percent Auto 4.2 % (2-4); Hemoglobin 12.7 g/dL (12.0-16.0); Lymphocytes Absolute Auto 2000 /uL (1100-4500); Lymphocytes Percent Auto 45.1 % (25-40); Mean Corpuscular HGB Conc 33.5 % (30-36); Mean Corpuscular Hemoglobin 27.3 PG (26-34); Mean Corpuscular Volume 81.5 fL (80-100); Monocytes Absolute Auto 200 /uL (0-900); Monocytes Percent Auto 4.6 % (3-14); Neutrophils Absolute Auto 2000 /uL (1500-7000); Neutrophils Percent Auto 45.4 % (50-75); Platelet Count 254 X10^3/uL (150-400); Red Blood Cell Count 4.67 X10^6/uL (4.0-5.2); Red Cell Distribution Width 15.4 % (11.6-14.8); White Blood Cell Count 4.5 X10^3/uL (4.5-11.0)
[2021-09-18 10:33] LABS: Alanine Aminotransferase 45 IU/L (<35); Albumin 4.4 g/dL (3.5-5.0); Albumin Globulin Ratio 1.8 (1.0-2.8); Alkaline Phosphatase 72 U/L (38-126); Aspartate Aminotransferase 42 IU/L (14-36); BUN Creatinine Ratio 12.9 (6-22); Bilirubin Total 0.5 mg/dL (0.2-1.3); Blood Urea Nitrogen 15 mg/dL (7-17); Carbon Dioxide 26 mmol/L (22-32); Chloride 103 mmol/L (98-107); Estimated Glomerular Filt Rate 48 mL/min (>60); Globulin 2.5 g/dL (1.7-4.1); Glucose 138 mg/dL (80-110); HEMOLYSIS < 15 (0-50); Potassium 4.4 mmol/L (3.4-5.1); Sodium 138 mmol/L (137-145); Total Protein 6.9 g/dL (6.3-8.2)
[2021-09-18 10:45] LABS: HEMOLYSIS < 15 (0-50); Iron 120 ug/dL (37-170)
[2021-09-18 10:57] LABS: Percent Iron Saturation 42 % (15-50); Total Iron Binding Capacity 288 ug/dL (265-497); Transferrin 235 mg/dL (206-381)
[2021-09-18 11:06] LABS: Ferritin 217 ng/mL (11-264)
[2021-09-18 12:01] LABS: Creatinine Urine Random 207.4 mg/dL; Protein (Total) Urine Random 6 mg/dL (0-12); Protein Creatinine Ratio Urine 0.02 GRAM/24H
[2021-09-19 06:25] LABS: Parathyroid Hormone Int 48 pg/mL (15-65)
== END ==
PROVIDERS: Internal Medicine Hematology & Oncology; PCP Family Medicine; Referring Provider Student in an Organized Health Care Education/Training Program; Visit Provider Student in an Organized Health Care Education/Training Program
DX: D64.9 Anemia, unspecified (principal); N25.81 Secondary hyperparathyroidism of renal origin; R80.9 Proteinuria, unspecified; N05.9 Unspecified nephritic syndrome with unspecified morphologic changes; E61.1 Iron deficiency
CPT/HCPCS: 36415; 80053; 82570; 82728; 83540; 83550; 83970; 84156; 85025

== ENCOUNTER → 2021-09-28 09:38 | Outpatient (CLI) | payer OTHER, SELFPAY ==
--- NOTE | 2021-09-28 09:40 | DI.US.S_ITS ---
PROCEDURE: US ABDOMEN COMPLETE INDICATIONS: Elevated LFT TECHNIQUE: Real-time scanning was performed of the abdominal and retroperitoneal organs, with image documentation. COMPARISON: None. FINDINGS: Liver: Liver is normal in size and homogeneous in echotexture. Gallbladder: Multiple shadowing gallstones. No abnormal gallbladder wall thickening, pericholecystic fluid, or abnormal distention of the gallbladder. Biliary ducts: Intrahepatic bile ducts are non-dilated. Extrahepatic bile duct caliber measures 8 mm. Pancreas: Visualized portions of the pancreas are sonographically normal. Spleen: Spleen is normal in size and homogeneous in echotexture. Kidneys: Kidneys are normal in size and echotexture. Right kidney measures 9 cm long; left kidney measures 8 cm long. No hydronephrosis or nephrolithiasis. No solid masses. Aorta: Visualized aorta is normal in caliber at less than 3 cm. Iliacs: Proximal common iliac arteries are normal in caliber at less than 2.5 cm. IVC: Intrahepatic inferior vena cava is patent. Miscellaneous: No free abdominal fluid. IMPRESSION: Cholelithiasis without findings of cholecystitis. Dictated by: Abraham Honeycutt M.D. on 09/28/2021 at 13:45 Approved by: Abraham Honeycutt M.D. on 09/28/2021 at 13:47
== END ==
PROVIDERS: PCP Family Medicine; Referring Provider Internal Medicine Hematology & Oncology; Visit Provider Internal Medicine Hematology & Oncology
DX: C50.912 Malignant neoplasm of unspecified site of left female breast (principal); K80.20 Calculus of gallbladder without cholecystitis without obstruction; R74.01 Elevation of levels of liver transaminase levels; E61.1 Iron deficiency; Z17.1 Estrogen receptor negative status [ER-]
CPT/HCPCS: 76700

== ENCOUNTER → 2021-10-23 09:46 | Outpatient (CLI) | payer OTHER, SELFPAY ==
[2021-10-23 11:04] LABS: COVID19 -Nasal RAPID Negative (Negative)
== END ==
PROVIDERS: PCP Family Medicine; Visit Provider Surgery
DX: Z20.822 Contact with and (suspected) exposure to COVID-19 (principal); Z01.812 Encounter for preprocedural laboratory examination
CPT/HCPCS: 87635; C9803

== ENCOUNTER 2021-10-24 06:32 | Day surgery (SDC) | payer OTHER, SELFPAY ==
[2021-10-24] VITALS (7 sets, daily range): BP systolic 120–141; BP diastolic 54–70; PULSE 54–63; RESP 12–58; TEMP 36.2–36.4; O2SAT 95–96; BMI 24.0
--- NOTE | 2021-10-24 | PATH_ITS ---
[facility] Accession Number: [id number] . 01 Material submitted: . duodenum - DUODENUM BIOPSY . 01 Clinical history: . IRON DEFICIENCY . 01 Diagnosis: Duodenum, Biopsy: Superficial fragments of duodenal mucosa with no significant diagnostic abnormality. Negative for active inflammation, features of sprue, dysplasia, and malignancy. MRV 10/25/2021 1014 Local . 01 Electronically signed: . Eleanor Trevino MD, Pathologist NPI- [id number] . 01 Gross description: . DUODENUM BIOPSY: Received in formalin is 1 fragment(s) of garcia, soft tissue measuring 0.1 x 0.1 x 0.1 cm submitted entirely in 1 cassette(s) /EB 10/24/2021 2228 Local . 01 Pathologist provided ICD-10: E61.1 . 01 CPT . 205982 Specimen Comment: A courtesy copy of this report has been sent to [phone] Performed at: 01 [facility] [address] [place] [address] [facility], [place], [place] [id number] MD Timo Carrera MD Phone: [phone]
[2021-10-24] MEDS: LACTATED RINGERS 1,000 ML 200 ML IV (07:28)
--- NOTE | 2021-10-24 07:45 | PM.HP.1 ---
History of Present Illness History of Present Illness Date Patient Seen: 10/24/21 Time Patient Seen: 07:45 [place] [facility] [place]: 81-year-old woman with a history of breast cancer and iron deficiency anemia who is here for esophagoduodenoscopy and colonoscopy. No history of peptic ulcer disease. She has had a previous colonoscopy 2018 which demonstrated benign polyps. No personal or family history intestinal malignancy. No abdominal pain, or blood per rectum however she does have chronic diarrhea. Patient History Medical History Atrial fibrillation Diabetes Dyslipidemia Surgical History History of hysterectomy Family & Social History Family History Father Colon cancer Grandmother Thyroid cancer Social History: household members spouse Tobacco & Substance use: Smoking Status Former smoker alcohol intake current alcohol intake frequency a few times a month Substance Use Type does not use Meds Home Medications and Allergies Home Medications Medication Instructions Recorded Confirmed Type calcium carbonate 300 mg (750 mg) 600 mg PO BID 06/11/18 09/25/21 History chewable tablet (Tums) diltiazem HCl 120 mg tablet 120 mg PO DAILY 06/11/18 09/25/21 History esomeprazole magnesium 20 mg 20 mg PO DAILY 06/11/18 10/24/21 History capsule,delayed release (Nexium) flecainide 100 mg tablet 50 mg PO Q12H 06/11/18 10/24/21 History metformin 1,000 mg tablet 500 mg PO BID 06/11/18 10/24/21 History multivitamin 1 cap PO DAILY 06/11/18 09/25/21 History rivaroxaban 20 mg tablet (Xarelto) 20 mg PO QPM 06/11/18 10/24/21 History acetaminophen 325 mg tablet 325 mg PRN PRN Pain (Scale Score 03/24/20 09/25/21 History (Tylenol) 1-3) alpha lipoic acid 100 mg capsule 100 mg PO DAILY 03/24/20 09/25/21 History alprazolam 0.5 mg tablet 0.5 mg PO BEDTIME PRN Anxiety 03/24/20 10/24/21 History rosuvastatin 40 mg tablet (Crestor) 40 mg PO DAILY 03/24/20 10/24/21 History magnesium oxide 400 mg (241.3 mg 400 mg PO BID #60 tabs 11/17/20 09/25/21 Rx magnesium) tablet sodium bicarbonate 325 mg tablet 325 mg PO 6XD 05/29/21 09/25/21 History Allergies Allergy/AdvReac Type Severity Reaction Status Date / Time Sulfa (Sulfonamide Allergy Mild Hives Verified 10/24/21 07:22 Antibiotics) [SULFA (SULFONAMIDE ANTIBIOTICS)] ibuprofen Allergy Unknown Passed out Verified 10/24/21 07:22 naproxen [From Aleve] Allergy Unknown Passed out Verified 10/24/21 07:22 Exam Vital Signs (past 8 hours): - 10/24/21 07:14 Temperature 97.1 F L Pulse Rate 63 Respiratory Rate 16 Blood Pressure 141/70 H Pulse Oximetry 96 Oxygen Delivery Method Room Air Oxygen Delivery Method Room Air Narrative Exam Narrative: General adult woman alert oriented no acute distress Abdomen soft nontender nondistended Assessment & Plan Assessment and plan (1) Iron deficiency: Status: Acute Assessment & Plan narrative: 81-year-old woman with iron deficiency anemia here for elective esophagoduodenoscopy and colonoscopy. Technical details were discussed. Risks, benefits, alternatives explained. Risks including but not limited to myocardial infarction, aspiration, bleeding, pain, missed lesion, incomplete examination, need for further radiographic studies, intestinal perforation, and need for major abdominal surgery were discussed. All questions were answered to their satisfaction, and they are in agreement with this plan. Time Spent With Patient Critical Care time: I spent a total of [] minutes of critical care time on this patient's care today; this time is exclusive of procedural time.
[2021-10-24] MEDS: MIDAZOLAM 5 MG/5 ML VIAL IV (08:11)
[2021-10-24] MEDS: LIDOCAINE 4% SOLN 50 ML 20 ML TOP (08:17)
[2021-10-24] MEDS: fentaNYL 250 MCG/5 ML INJ 125 MCG IV (08:18)
--- NOTE | 2021-10-24 08:21 | PM.OP.EC ---
Operative Date/Time/Diagnoses Date of procedure: 10/24/21 Time of procedure: 08:21 Pre-op diagnosis: Iron deficiency anemia Post-op diagnosis: same Procedure & Clinicians Study performed: Esophagoduodenoscopy and colonoscopy Same procedure as scheduled: Yes Indications: Iron deficiency anemia Surgeon: Ramy Camarena Procedure Notes Procedure in detail: Medications: Conscious sedation using 5mg IV midazolam and 125mcg IV of fentanyl The history and physical was performed/updated and the patient is ASA class is 2 . The procedure was discussed in detail with the patient. Potential risks complications including infection, bleeding, missed diagnosis, perforation, need for surgery, and were explained. Their questions were answered and informed consent was obtained. Patient placed in left lateral decubitus position. Time out was performed. Procedural sedation was administered with Versed and Fentanyl. A bite block was placed. the scope was inserted into the mouth and advanced through the esophagus and into the stomach. Stomach was notable for mild gastritis and old clots of blood within the stomach. No distinct ulcer or active hemorrhage. Duodenum was also notable for mild duodenitis. Biopsy of the duodenum was performed with forceps.. The scope was retroflexed within the stomach and there was a small hiatal hernia. The scope was withdrawn into the esophagus the Z line was seen at 35 cm from the incisions. There was no Mora's esophagitis or masses or strictures. Stomach was desufflated and scope removed. Patient tolerated procedure well. Examination began with a thorough inspection of the perianal area there was no evidence of fissures, fistulae, external hemorrhoids or cutaneous malignancy. The colonoscopy scope was then placed into the anal canal and was advanced to the cecum, which was identified by the ileocecal valve, the appendiceal orifice and the confluence of the taenia. The scope was then slowly withdrawn examining colon thoroughly in all directions, irrigating it of any residual stool. FINDINGS 1. Gastritis and duodenitis 2. Normal colonoscopy. No masses or polyps The patient tolerated the procedure well. They will be discharged once criteria are met. The prep was of good/excellent quality. The withdrawl time was 6minutes. The sedation time was 26 minutes. Specimen(s): other (Duodenum) Complications: none Impression: Gastritis Post-procedure Recommendations: Prescription for (Pepcid) Disposition: same day surgery
--- NOTE | 2021-10-24 09:04 | SUR.PHASEII ---
pt given discharge instructions. pt states she understands discharge instructions. pt to be discharged with her . Pt denies any complaints.
== END 2021-10-24 09:07 | disposition home or self-care (01) ==
PROVIDERS: PCP Family Medicine; Referring Provider Surgery; Visit Provider Surgery
PROC: 0DJ08ZZ Inspection of Upper Intestinal Tract, Via Natural or Artificial Opening Endoscopic (ICD-10-PCS; CPT 43235; principal; 2021-10-24 07:45)
PROC: 0DJD8ZZ Inspection of Lower Intestinal Tract, Via Natural or Artificial Opening Endoscopic (ICD-10-PCS; CPT 45378; 2021-10-24 07:45)
DX: D50.9 Iron deficiency anemia, unspecified (principal); K29.70 Gastritis, unspecified, without bleeding; K29.80 Duodenitis without bleeding; K44.9 Diaphragmatic hernia without obstruction or gangrene; Z86.010 Personal history of colon polyps; I48.91 Unspecified atrial fibrillation; E11.9 Type 2 diabetes mellitus without complications; E78.5 Hyperlipidemia, unspecified; Z79.84 Long term (current) use of oral hypoglycemic drugs; Z79.01 Long term (current) use of anticoagulants; Z90.710 Acquired absence of both cervix and uterus; Z85.3 Personal history of malignant neoplasm of breast; Z87.891 Personal history of nicotine dependence
CPT/HCPCS: 43239; 45378; 99152; 99153; J2250; J3010

== ENCOUNTER → 2021-12-04 11:04 | Outpatient (CLI) | payer OTHER, SELFPAY ==
[2021-12-04 14:23] LABS: Alanine Aminotransferase 30 IU/L (<35); Albumin 4.7 g/dL (3.5-5.0); Albumin Globulin Ratio 1.8 (1.0-2.8); Alkaline Phosphatase 90 U/L (38-126); Aspartate Aminotransferase 31 IU/L (14-36); BUN Creatinine Ratio 13.6 (6-22); Bilirubin Total 0.4 mg/dL (0.2-1.3); Blood Urea Nitrogen 17 mg/dL (7-17); Calcium 9.4 mg/dL (8.4-10.2); Carbon Dioxide 30 mmol/L (22-32); Chloride 97 mmol/L (98-107); Estimated Glomerular Filt Rate 44 mL/min (>60); Globulin 2.6 g/dL (1.7-4.1); Glucose 126 mg/dL (80-110); HEMOLYSIS < 15 (0-50); Magnesium 1.9 mg/dL (1.6-2.3); Potassium 4.8 mmol/L (3.4-5.1); Sodium 137 mmol/L (137-145); Total Protein 7.3 g/dL (6.3-8.2)
[2021-12-06 10:46] LABS: Cholesterol, Total 175 mg/dL (100-199); HDL-Cholesterol 62 mg/dL (>39); HDL-Particle (Total) 46.3 umol/L (>=30.5); LDL Particle 1056 nmol/L (<1000); LDL Size 20.8 nm (>20.5); LDL-Cholsterol 81 mg/dL (0-99); LP-IR Score 65 (<=45); Small LDL- Particle 646 nmol/L (<=527); Triglycerides 190 mg/dL (0-149)
== END ==
PROVIDERS: PCP Family Medicine; Referring Provider Specialist; Visit Provider Specialist
DX: I48.0 Paroxysmal atrial fibrillation (principal); E78.2 Mixed hyperlipidemia
CPT/HCPCS: 36415; 80053; 80061; 83704; 83735

== ENCOUNTER → 2022-03-30 08:42 | Outpatient (CLI) | payer OTHER, SELFPAY ==
[2022-03-30 11:09] LABS: Add Manual Diff / Slide Review NO; Basophils Absolute Auto 0 /uL (0-100); Basophils Percent Auto 0.9 % (0-2); Eosinophils Absolute Auto 200 /uL (0-450); Eosinophils Percent Auto 3.4 % (2-4); Hematocrit 40.5 % (36-46); Hemoglobin 13.3 g/dL (12.0-16.0); Lymphocytes Absolute Auto 2100 /uL (1100-4500); Lymphocytes Percent Auto 39.4 % (25-40); Mean Corpuscular HGB Conc 32.8 % (30-36); Mean Corpuscular Hemoglobin 27.1 PG (26-34); Mean Corpuscular Volume 82.7 fL (80-100); Monocytes Absolute Auto 200 /uL (0-900); Monocytes Percent Auto 4.5 % (3-14); Neutrophils Absolute Auto 2800 /uL (1500-7000); Neutrophils Percent Auto 51.8 % (50-75); Platelet Count 293 X10^3/uL (150-400); Red Blood Cell Count 4.89 X10^6/uL (4.0-5.2); Red Cell Distribution Width 13.7 % (11.6-14.8); White Blood Cell Count 5.4 X10^3/uL (4.5-11.0)
[2022-03-30 11:20] LABS: HEMOLYSIS < 15 (0-50); Iron 91 ug/dL (37-170)
[2022-03-30 11:22] LABS: Alanine Aminotransferase 21 IU/L (<35); Albumin 4.6 g/dL (3.5-5.0); Albumin Globulin Ratio 1.5 (1.0-2.8); Alkaline Phosphatase 68 U/L (38-126); Aspartate Aminotransferase 26 IU/L (14-36); BUN Creatinine Ratio 14.2 (6-22); Bilirubin Total 0.5 mg/dL (0.2-1.3); Blood Urea Nitrogen 16 mg/dL (7-17); Calcium 9.4 mg/dL (8.4-10.2); Carbon Dioxide 31 mmol/L (22-32); Chloride 100 mmol/L (98-107); Estimated Glomerular Filt Rate 49 mL/min (>60); Glucose 135 mg/dL (80-110); HEMOLYSIS < 15 (0-50); Magnesium 1.9 mg/dL (1.6-2.3); Potassium 4.3 mmol/L (3.4-5.1); Sodium 140 mmol/L (137-145); Total Protein 7.6 g/dL (6.3-8.2)
[2022-03-30 11:31] LABS: Percent Iron Saturation 31 % (15-50); Total Iron Binding Capacity 297 ug/dL (265-497); Transferrin 238 mg/dL (206-381)
[2022-03-30 12:00] LABS: Ferritin 101 ng/mL (11-264)
== END ==
PROVIDERS: Internal Medicine Hematology & Oncology; PCP Family Medicine; Referring Provider Student in an Organized Health Care Education/Training Program; Visit Provider Student in an Organized Health Care Education/Training Program
DX: N05.9 Unspecified nephritic syndrome with unspecified morphologic changes (principal); N25.81 Secondary hyperparathyroidism of renal origin; D64.9 Anemia, unspecified; R80.9 Proteinuria, unspecified; C50.912 Malignant neoplasm of unspecified site of left female breast; Z17.1 Estrogen receptor negative status [ER-]; E61.1 Iron deficiency
CPT/HCPCS: 36415; 80053; 82728; 83540; 83550; 83735; 85025

== ENCOUNTER → 2022-08-01 11:53 | Outpatient (CLI) | payer OTHER, SELFPAY ==
[2022-08-01 13:12] LABS: Hematocrit 38.2 % (36-46); Hemoglobin 12.9 g/dL (12.0-16.0)
[2022-08-01 13:35] LABS: BUN Creatinine Ratio 12.5 (6-22); Blood Urea Nitrogen 17 mg/dL (7-17); Calcium 9.6 mg/dL (8.4-10.2); Carbon Dioxide 28 mmol/L (22-32); Chloride 98 mmol/L (98-107); Estimated Glomerular Filt Rate 39 mL/min (>60); Glucose 112 mg/dL (80-110); HEMOLYSIS < 15 (0-50); Potassium 4.8 mmol/L (3.4-5.1); Sodium 136 mmol/L (137-145)
[2022-08-01 15:14] LABS: Creatinine Urine Random 74.7 mg/dL; Protein (Total) Urine Random 9 mg/dL (0-12); Protein Creatinine Ratio Urine 0.12 GRAM/24H
[2022-08-02 08:23] LABS: Parathyroid Hormone Int 33 pg/mL (15-65)
== END ==
PROVIDERS: PCP Family Medicine; Referring Provider Student in an Organized Health Care Education/Training Program; Visit Provider Student in an Organized Health Care Education/Training Program
DX: N05.9 Unspecified nephritic syndrome with unspecified morphologic changes (principal); D64.9 Anemia, unspecified; N25.81 Secondary hyperparathyroidism of renal origin; R80.9 Proteinuria, unspecified
CPT/HCPCS: 36415; 80048; 82570; 83970; 84156; 85014; 85018

== ENCOUNTER → 2022-09-27 11:01 | Outpatient (CLI) | payer OTHER, SELFPAY ==
[2022-09-27 12:36] LABS: BUN Creatinine Ratio 14.2 (6-22); Blood Urea Nitrogen 19 mg/dL (7-17); Calcium 9.6 mg/dL (8.4-10.2); Carbon Dioxide 31 mmol/L (22-32); Chloride 99 mmol/L (98-107); Estimated Glomerular Filt Rate 40 mL/min (>60); Glucose 126 mg/dL (80-110); HEMOLYSIS < 15 (0-50); Sodium 136 mmol/L (137-145)
[2022-09-27 12:38] LABS: Potassium 5.4 mmol/L (3.4-5.1)
== END ==
PROVIDERS: PCP Family Medicine; Referring Provider Student in an Organized Health Care Education/Training Program; Visit Provider Student in an Organized Health Care Education/Training Program
DX: N05.9 Unspecified nephritic syndrome with unspecified morphologic changes (principal)
CPT/HCPCS: 36415; 80048

== ENCOUNTER → 2022-10-02 10:15 | Outpatient (CLI) | payer OTHER, SELFPAY ==
[2022-10-02 11:57] LABS: Alanine Aminotransferase 20 IU/L (<35); Albumin 4.3 g/dL (3.5-5.0); Albumin Globulin Ratio 1.7 (1.0-2.8); Alkaline Phosphatase 80 U/L (38-126); Aspartate Aminotransferase 25 IU/L (14-36); BUN Creatinine Ratio 15.6 (6-22); Bilirubin Total 0.4 mg/dL (0.2-1.3); Blood Urea Nitrogen 17 mg/dL (7-17); Calcium 9.1 mg/dL (8.4-10.2); Carbon Dioxide 32 mmol/L (22-32); Chloride 101 mmol/L (98-107); Cholesterol 157 mg/dL (140-199); Estimated Glomerular Filt Rate 51 mL/min (>60); Globulin 2.6 g/dL (1.7-4.1); Glucose 139 mg/dL (80-110); HDL Cholesterol 59 mg/dL (40-60); HEMOLYSIS < 15 (0-50); LDL Cholesterol Calculated 61 mg/dL (<100); Magnesium 2.2 mg/dL (1.6-2.3); Potassium 4.8 mmol/L (3.4-5.1); Sodium 137 mmol/L (137-145); Total Protein 6.9 g/dL (6.3-8.2); Triglycerides 187 mg/dL (35-150)
== END ==
PROVIDERS: PCP Family Medicine; Referring Provider Specialist; Visit Provider Specialist
DX: I48.0 Paroxysmal atrial fibrillation (principal); E78.2 Mixed hyperlipidemia
CPT/HCPCS: 36415; 80053; 80061; 83735

== ENCOUNTER → 2022-10-06 09:27 | Outpatient (CLI) | payer OTHER, SELFPAY ==
[2022-10-06 10:22] LABS: Add Manual Diff / Slide Review NO; Basophils Absolute Auto 0 /uL (0-100); Basophils Percent Auto 0.8 % (0-2); Eosinophils Absolute Auto 200 /uL (0-450); Eosinophils Percent Auto 2.9 % (2-4); Lymphocytes Absolute Auto 2300 /uL (1100-4500); Lymphocytes Percent Auto 37.9 % (25-40); Mean Corpuscular HGB Conc 33.4 % (30-36); Mean Corpuscular Hemoglobin 27.6 PG (26-34); Mean Corpuscular Volume 82.7 fL (80-100); Monocytes Absolute Auto 300 /uL (0-900); Monocytes Percent Auto 5.4 % (3-14); Neutrophils Absolute Auto 3200 /uL (1500-7000); Platelet Count 298 X10^3/uL (150-400); Red Blood Cell Count 4.72 X10^6/uL (4.0-5.2); Red Cell Distribution Width 13.8 % (11.6-14.8); White Blood Cell Count 6.1 X10^3/uL (4.5-11.0)
[2022-10-06 10:51] LABS: Alanine Aminotransferase 19 IU/L (<35); Albumin 4.5 g/dL (3.5-5.0); Albumin Globulin Ratio 1.7 (1.0-2.8); Alkaline Phosphatase 69 U/L (38-126); Aspartate Aminotransferase 26 IU/L (14-36); BUN Creatinine Ratio 18.6 (6-22); Bilirubin Total 0.4 mg/dL (0.2-1.3); Blood Urea Nitrogen 21 mg/dL (7-17); Calcium 9.5 mg/dL (8.4-10.2); Carbon Dioxide 31 mmol/L (22-32); Chloride 102 mmol/L (98-107); Estimated Glomerular Filt Rate 49 mL/min (>60); Globulin 2.6 g/dL (1.7-4.1); Glucose 126 mg/dL (80-110); HEMOLYSIS 15 (0-50); Potassium 4.9 mmol/L (3.4-5.1); Sodium 140 mmol/L (137-145); Total Protein 7.1 g/dL (6.3-8.2)
== END ==
PROVIDERS: Internal Medicine Hematology & Oncology; PCP Family Medicine; Referring Provider Student in an Organized Health Care Education/Training Program; Visit Provider Student in an Organized Health Care Education/Training Program
DX: E87.5 Hyperkalemia (principal); C50.912 Malignant neoplasm of unspecified site of left female breast; Z17.1 Estrogen receptor negative status [ER-]
CPT/HCPCS: 36415; 80053; 85025

== ENCOUNTER → 2022-11-06 08:22 | Outpatient (CLI) | payer OTHER, SELFPAY ==
[2022-11-06 09:12] LABS: Hematocrit 37.3 % (36-46); Hemoglobin 12.6 g/dL (12.0-16.0)
[2022-11-06 09:30] LABS: BUN Creatinine Ratio 14.3 (6-22); Blood Urea Nitrogen 16 mg/dL (7-17); Calcium 9.1 mg/dL (8.4-10.2); Carbon Dioxide 27 mmol/L (22-32); Chloride 100 mmol/L (98-107); Estimated Glomerular Filt Rate 50 mL/min (>60); Glucose 134 mg/dL (80-110); HEMOLYSIS < 15 (0-50); Potassium 4.4 mmol/L (3.4-5.1); Sodium 137 mmol/L (137-145)
[2022-11-06 10:45] LABS: Creatinine Urine Random 127.7 mg/dL; Protein (Total) Urine Random 6 mg/dL (0-12); Protein Creatinine Ratio Urine 0.04 GRAM/24H
[2022-11-08 08:42] LABS: Parathyroid Hormone Int 44 pg/mL (15-65)
== END ==
PROVIDERS: PCP Family Medicine; Referring Provider Student in an Organized Health Care Education/Training Program; Visit Provider Student in an Organized Health Care Education/Training Program
DX: N05.9 Unspecified nephritic syndrome with unspecified morphologic changes (principal); D64.9 Anemia, unspecified; N25.81 Secondary hyperparathyroidism of renal origin; R80.9 Proteinuria, unspecified
CPT/HCPCS: 36415; 80048; 82570; 83970; 84156; 85014; 85018

== ENCOUNTER → 2023-04-30 10:13 | Outpatient (CLI) | payer OTHER, SELFPAY ==
[2023-04-30 10:57] LABS: Hematocrit 39.5 % (36-46); Hemoglobin 13.3 g/dL (12.0-16.0)
[2023-04-30 11:11] LABS: BUN Creatinine Ratio 16.8 (6-22); Blood Urea Nitrogen 20 mg/dL (7-17); Calcium 9.5 mg/dL (8.4-10.2); Carbon Dioxide 27 mmol/L (22-32); Chloride 102 mmol/L (98-107); Estimated Glomerular Filt Rate 46 mL/min (>60); Glucose 136 mg/dL (80-110); HEMOLYSIS < 15 (0-50); Potassium 4.7 mmol/L (3.4-5.1); Sodium 135 mmol/L (137-145)
[2023-04-30 11:47] LABS: Creatinine Urine Random 192.2 mg/dL; Protein (Total) Urine Random 9 mg/dL (0-12); Protein Creatinine Ratio Urine 0.04 GRAM/24H
[2023-05-02 08:11] LABS: Parathyroid Hormone Int 34 pg/mL (15-65)
== END ==
PROVIDERS: PCP Family Medicine; Referring Provider Student in an Organized Health Care Education/Training Program; Visit Provider Student in an Organized Health Care Education/Training Program
DX: N05.9 Unspecified nephritic syndrome with unspecified morphologic changes (principal); D70.9 Neutropenia, unspecified; D63.1 Anemia in chronic kidney disease; N25.81 Secondary hyperparathyroidism of renal origin; R80.9 Proteinuria, unspecified
CPT/HCPCS: 36415; 80048; 82570; 83970; 84156; 85014; 85018

== ENCOUNTER → 2023-06-18 10:42 | Outpatient (CLI) | payer OTHER, SELFPAY ==
[2023-06-18 11:33] LABS: Alanine Aminotransferase 16 IU/L (<35); Albumin 4.6 g/dL (3.5-5.0); Albumin Globulin Ratio 1.9 (1.0-2.8); Alkaline Phosphatase 74 U/L (38-126); Aspartate Aminotransferase 24 IU/L (14-36); BUN Creatinine Ratio 14.6 (6-22); Bilirubin Total 0.5 mg/dL (0.2-1.3); Blood Urea Nitrogen 18 mg/dL (7-17); Calcium 9.2 mg/dL (8.4-10.2); Carbon Dioxide 25 mmol/L (22-32); Chloride 107 mmol/L (98-107); Estimated Glomerular Filt Rate 44 mL/min (>60); Globulin 2.4 g/dL (1.7-4.1); Glucose 161 mg/dL (80-110); HEMOLYSIS < 15 (0-50); Magnesium 1.9 mg/dL (1.6-2.3); Potassium 4.6 mmol/L (3.4-5.1); Sodium 138 mmol/L (137-145)
[2023-06-20 14:35] LABS: Cholesterol, Total 171 mg/dL (100-199); HDL-Cholesterol 64 mg/dL (>39); HDL-Particle (Total) 45.7 umol/L (>=30.5); Historical Reading Comment: (.); LDL Particle 1064 nmol/L (<1000); LDL Size 20.6 nm (>20.5); LDL-Cholsterol 81 mg/dL (0-99); LP-IR Score 64 (<=45); Small LDL- Particle 474 nmol/L (<=527); Triglycerides 151 mg/dL (0-149)
== END ==
LOC: LAB 10:44
PROVIDERS: PCP Family Medicine; Referring Provider Specialist; Visit Provider Specialist
DX: I48.0 Paroxysmal atrial fibrillation (principal); E78.2 Mixed hyperlipidemia
CPT/HCPCS: 36415; 80053; 80061; 83704; 83735

== ENCOUNTER → 2023-08-19 12:55 | Outpatient (CLI) | payer OTHER, SELFPAY ==
[2023-08-19 13:39] LABS: Add Manual Diff / Slide Review NO; Basophils Absolute Auto 0 /uL (0-100); Basophils Percent Auto 0.5 % (0-2); Eosinophils Absolute Auto 100 /uL (0-450); Eosinophils Percent Auto 1.6 % (2-4); Hematocrit 37.9 % (36-46); Hemoglobin 12.7 g/dL (12.0-16.0); Lymphocytes Absolute Auto 2200 /uL (1100-4500); Lymphocytes Percent Auto 27.9 % (25-40); Mean Corpuscular HGB Conc 33.5 % (30-36); Mean Corpuscular Hemoglobin 27.7 PG (26-34); Mean Corpuscular Volume 82.6 fL (80-100); Monocytes Absolute Auto 300 /uL (0-900); Monocytes Percent Auto 4.2 % (3-14); Neutrophils Absolute Auto 5200 /uL (1500-7000); Neutrophils Percent Auto 65.8 % (50-75); Platelet Count 322 X10^3/uL (150-400); Red Blood Cell Count 4.59 X10^6/uL (4.0-5.2); Red Cell Distribution Width 13.3 % (11.6-14.8); White Blood Cell Count 7.9 X10^3/uL (4.5-11.0)
[2023-08-19 14:03] LABS: Alanine Aminotransferase 15 IU/L (<35); Albumin 4.6 g/dL (3.5-5.0); Albumin Globulin Ratio 1.5 (1.0-2.8); Alkaline Phosphatase 71 U/L (38-126); Aspartate Aminotransferase 25 IU/L (14-36); BUN Creatinine Ratio 13.7 (6-22); Bilirubin Total 0.6 mg/dL (0.2-1.3); Blood Urea Nitrogen 16 mg/dL (7-17); Calcium 9.2 mg/dL (8.4-10.2); Carbon Dioxide 27 mmol/L (22-32); Chloride 102 mmol/L (98-107); Estimated Glomerular Filt Rate 47 mL/min (>60); Glucose 127 mg/dL (80-110); HEMOLYSIS < 15 (0-50); Potassium 4.4 mmol/L (3.4-5.1); Sodium 135 mmol/L (137-145); Total Protein 7.6 g/dL (6.3-8.2)
== END ==
LOC: LAB 12:57
PROVIDERS: PCP Family Medicine; Referring Provider Internal Medicine Hematology & Oncology; Visit Provider Internal Medicine Hematology & Oncology
DX: C50.912 Malignant neoplasm of unspecified site of left female breast (principal); Z17.1 Estrogen receptor negative status [ER-]
CPT/HCPCS: 36415; 80053; 85025

== ENCOUNTER → 2023-10-01 11:09 | Outpatient (CLI) | payer OTHER, SELFPAY ==
--- NOTE | 2023-10-01 11:11 | DI.RAD.S_ITS ---
PROCEDURE: XR CHEST 2V INDICATIONS: Acute cough TECHNIQUE: 2 views of the chest were acquired. COMPARISON: None. FINDINGS: Surgical changes and devices: Surgical clips in the left breast and axilla. Lungs and pleura: Masslike consolidation in the right upper lobe. No pleural effusions or pneumothorax. Mediastinum: Mediastinal contours are normal. Heart size is normal. Aortic arch is calcified, indicating atherosclerosis. Bones and chest wall: No suspicious bony abnormalities. Soft tissues appear unremarkable. Multilevel degenerative changes of the spine. Calcification of the abdominal aorta. IMPRESSION: Masslike consolidation in the right upper lobe. Recommend a contrast enhanced CT of the chest for further evaluation. Dictated by: Marcial Valencia M.D. on 10/01/2023 at 16:51 Approved by: Marcial Valencia M.D. on 10/01/2023 at 16:53
== END ==
PROVIDERS: PCP Family Medicine; Referring Provider Registered Nurse; Visit Provider Registered Nurse
DX: R05.1 Acute cough (principal); R91.8 Other nonspecific abnormal finding of lung field
CPT/HCPCS: 71046

== ENCOUNTER 2023-10-04 14:31 | Emergency (ER) | payer OTHER, SELFPAY ==
--- NOTE | 2023-10-04 14:44 | EKG_ITS ---
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
[2023-10-04 14:53] VITALS: BP 168/76; PULSE 70; RESP 24; TEMP 36.1; O2SAT 95; BMI 24.0
--- NOTE | 2023-10-04 14:53 | DI.CT.S_ITS ---
PROCEDURE: CT CHEST W CON INDICATIONS: RUL mass seen on CXR TECHNIQUE: After the administration of intravenous contrast, 5 mm thick sections acquired from the pulmonary apices to the posterior costophrenic angles. 1 mm axial lung, 5 mm thick coronal and sagittal reformats and 7 mm axial MIP were acquired. For radiation dose reduction, the following was used: automated exposure control, adjustment of mA and/or kV according to patient size. COMPARISON: [facility], CR, XR CHEST 2V, 10/01/2023, 11:21. FINDINGS: Image quality: Diagnostic. Lower Neck: No enlarged lymph nodes. Thyroid: No thyroid nodules which require sonographic follow up, per consensus guidelines. Axillae: Surgical clips in the left axilla. No enlarged lymph nodes. Chest Wall: Surgical clips are seen in the left breast. Bones: Unremarkable. Lungs and Pleura: Bulky mass is seen in the right suprahilar region extending superiorly to the right lung apex. A few small satellite nodules are present. Lesion measures approximately 4.3 x 3.0 cm on axial images (80/3) by approximately 6.9 cm craniocaudal (33/5). Mass obstructs the apical segmental bronchus of the right upper lobe. Mild pleural thickening is seen at the right lung apex without definite invasion of the adjacent chest wall structures. Mild scarring is seen at the anterior left upper lobe, likely related to prior radiation therapy. Small right pleural effusion with mild right basilar atelectasis. A few scattered ground-glass nodules are seen in the central left upper lobe, for example on image 96 of series 3). No pneumothorax. Heart: Heart size is normal. No pericardial effusion. Thoracic Vessels: The aorta and pulmonary arteries demonstrate normal size. Mediastinum and Chloe: Enlarged confluent lymph nodes are seen in the right paratracheal and precarinal region, for example measuring up 3.2 x 3.1 cm (20/2) and 4.9 x 3.1 cm (26/2). Esophagus: No wall thickening. No hiatal hernia. Upper Abdomen: Visualized upper abdomen solid organs and bowel loops appear normal. IMPRESSION: 1. Large right upper lobe pulmonary mass measures up to 6.9 cm in length extending from the suprahilar region to the right lung apex, highly suspicious for malignancy. The mass obstructs the right apical segmental pulmonary bronchus. 2. Bulky right-sided confluent mediastinal lymph nodes. No contralateral or supraclavicular lymph nodes are seen. 3. Small right pleural effusion. 4. Postsurgical changes in the left breast and left axilla. No recurrent axillary lymphadenopathy. Approved by: Tyler Ayoub M.D. on 10/04/2023 at 17:32
--- NOTE | 2023-10-04 14:56 | ED_ITS ---
HPI - General Adult General Chief complaint: Chest Pain Stated complaint: Chest Pain Time Seen by Provider: 10/04/23 14:42 Source: patient Mode of arrival: Ambulatory Limitations: no limitations History of Present Illness HPI narrative: Patient is an 83-year-old female who is here for evaluation of chest pain. She states that the discomfort has been present for the past couple days but she states it is only when she coughs. She was had a cough for the past several weeks. Was seen by primary provider. Had an outpatient chest x-ray done yesterday. Noticed a masslike lesion in the right upper lobe. There was recommendation of a CT scan. She does report congestion. Reports sore throat. She does have history of breast cancer. Has a nonproductive cough. Has a history of AFib. Related Data Home Medications Medication Instructions Recorded Confirmed calcium carbonate (Tums) 600 mg PO BID 06/11/18 07/26/22 esomeprazole magnesium 20 mg 20 mg PO DAILY 06/11/18 07/26/22 capsule,delayed release (Nexium) flecainide 100 mg tablet 50 mg PO Q12H 06/11/18 07/26/22 metformin 1,000 mg tablet 500 mg PO BID 06/11/18 07/26/22 multivitamin 1 cap PO DAILY 06/11/18 07/26/22 rivaroxaban 20 mg tablet (Xarelto) 20 mg PO QPM 06/11/18 01/25/22 acetaminophen 325 mg tablet 325 mg PRN PRN Pain (Scale Score 03/24/20 07/26/22 (Tylenol) 1-3) alprazolam 0.5 mg tablet 0.5 mg PO BEDTIME PRN Anxiety 03/24/20 07/26/22 rosuvastatin 40 mg tablet (Crestor) 40 mg PO DAILY 03/24/20 07/26/22 diltiazem malate 120 mg 120 mg PO DAILY 01/25/22 07/26/22 tablet,extended release 24 hr latanoprost 0.005 % eye drops 1 drp ophthalmic (eye) DAILY 07/26/22 07/26/22 magnesium 500 mg tablet 15 mg PO BID 07/26/22 07/26/22 Previous Rx's Medication Instructions Recorded benzonatate 100 mg capsule 100 mg PO BID-TID PRN cough #20 10/04/23 caps Allergies Allergy/AdvReac Type Severity Reaction Status Date / Time Sulfa (Sulfonamide Allergy Mild Hives Verified 10/24/21 07:22 Antibiotics) [SULFA (SULFONAMIDE ANTIBIOTICS)] ibuprofen Allergy Unknown Passed out Verified 10/24/21 07:22 naproxen [From Aleve] Allergy Unknown Passed out Verified 10/24/21 07:22 Review of Systems Review of Systems ROS Unobtainable: All systems reviewed & are unremarkable except as noted in HPI and below Patient History Medical History Diabetes Atrial fibrillation Dyslipidemia Surgical History History of hysterectomy Family History Father Colon cancer Grandmother Thyroid cancer Social History household members: spouse Smoking Status: Former smoker alcohol intake: current substance use type: does not use Smoking Status: Former smoker alcohol intake frequency: a few times a month Substance Use Type: does not use Exam Initial Vital Signs Initial Vital Signs: Vital Signs Temperature 97 F L 10/04/23 14:53 Pulse Rate 70 10/04/23 14:53 Respiratory Rate 24 10/04/23 14:53 Blood Pressure 168/76 H 10/04/23 14:53 Pulse Oximetry 95 10/04/23 14:53 Oxygen Delivery Method Room Air 10/04/23 14:53 Const General: cooperative, comfortable and No ill appearing HENMT Head: normal to inspection and normocephalic Resp Effort & Inspection: normal respiratory effort Auscultation: clear to auscultation bilaterally Cardio Rate: regular rate Rhythm: regular rhythm Skin General: no rashes or lesions noted Neuro General: patient alert, patient awake and moves all extremities Extrem General: capillary refill normal Course Orders Ordered: ED Orders 10/04/23 14:46 EKG-12 Lead Stat 10/04/23 14:49 BNP [NT-proBNP (BNP-Adult 18+)] Stat Complete Blood Count AUTO DIFF Stat Comprehensive Metabolic Panel Stat Lipase Stat Magnesium Stat Troponin & CK Cardiac Panel Stat 10/04/23 14:53 CT chest w con Stat 10/04/23 15:02 Respiratory Panel (Film Array) Stat Vital Signs Vital signs: Vital Signs - 8 hr 10/04/23 14:53 10/04/23 16:10 Temperature 97 F L Pulse Rate 70 68 Respiratory Rate 24 16 Blood Pressure 168/76 H 162/72 H Pulse Oximetry 95 94 Oxygen Delivery Method Room Air Room Air Medical Decision Making Medical Records Medical records reviewed: Yes I reviewed the patient's medical records. Lab Data Lab results reviewed: Yes I reviewed the patient's lab results. 10/04/23 14:49 10/04/23 14:49 Labs: Lab Results 10/04/23 10/04/23 Range/Units 14:49 15:02 WBC 14.1 H (4.5-11.0) X10^3/uL RBC 4.16 (4.0-5.2) X10^6/uL Hgb 11.3 L (12.0-16.0) g/dL Hct 34.0 L (36-46) % MCV 81.5 (80-100) fL MCH 27.0 (26-34) PG MCHC 33.1 (30-36) % RDW 12.6 (11.6-14.8) % Plt Count 361 (150-400) X10^3/uL Neut % (Auto) Not Reportable Lymph % (Auto) Not Reportable [place] % (Auto) Not Reportable Eos % (Auto) Not Reportable Baso % (Auto) Not Reportable Lymph # (Auto) Not Reportable [place] # (Auto) Not Reportable Baso # (Auto) Not Reportable Total Counted 100 Seg Neutrophils % 67.0 (38-70) % Lymphocytes % (Manual) 25.0 (25-45) % Monocytes % (Manual) 3.0 (2-11) % Eosinophils % (Manual) 2.0 (2-4) % Metamyelocytes % 3.0 H (-0) % Neutrophils # (Manual) 9447 H (0435-5637) /uL Platelet Estimate Adeq Plt Morphology Comment RBC Morphology Normal morphology Sodium 132 L (137-145) mmol/L Potassium 4.4 (3.4-5.1) mmol/L Chloride 100 (98-107) mmol/L Carbon Dioxide 21 L (22-32) mmol/L BUN 15 (7-17) mg/dL Creatinine 1.12 H (0.52-1.04) mg/dL Estimated GFR 49 L (>60) mL/min BUN/Creatinine Ratio 13.4 (6-22) Glucose 149 H (80-110) mg/dL Calcium 9.5 (8.4-10.2) mg/dL Magnesium 1.9 (1.6-2.3) mg/dL Total Bilirubin 0.6 (0.2-1.3) mg/dL AST 26 (14-36) IU/L ALT 20 (<35) IU/L Alkaline Phosphatase 83 (38-126) U/L Total Creatine Kinase 51 (30-135) U/L Troponin I < 0.012 (0.01-0.034) ng/mL NT-Pro-B Natriuret Pep 266 (<450) pg/mL Total Protein 7.6 (6.3-8.2) g/dL Albumin 4.5 (3.5-5.0) g/dL Globulin 3.1 (1.7-4.1) g/dL Albumin/Globulin Ratio 1.5 (1.0-2.8) Lipase 57 (23-300) U/L Chlamy pneumoniae PCR Not detected (Not Detect) Adenovirus (PCR) Not detected (Not Detect) B.parapertussis DNA PCR Not detected (Not Detecte) Coronavirus OC43 (PCR) Not detected (Not Detect) Coronavirus HKU1 (PCR) Not detected (Not Detect) Coronavirus 229E (PCR) Not detected (Not Detect) SARS-CoV-2 (PCR) Not detected (Not Detecte) Coronavirus NL63 (PCR) Not detected (Not Detect) Human Metapneumovir PCR Not detected (Not Detect) Influenza Type A (PCR) Not detected (Not Detect) Influenza Type B (PCR) Not detected (Not Detect) M. pneumoniae (PCR) Not detected (Not Detect) Parainfluenza 1 (PCR) Not detected (Not Detect) Parainfluenza 2 (PCR) Not detected (Not Detect) Parainfluenza 3 (PCR) Not detected (Not Detect) Parainfluenza 4 (PCR) Not detected (Not Detect) RSV (PCR) Not detected (Not Detect) Entero/Rhino (PCR) Not detected (Not Detect) Imaging Data CT scan - chest: Radiologist's Impression: PROCEDURE: CT CHEST W CON INDICATIONS: RUL mass seen on CXR TECHNIQUE: After the administration of intravenous contrast, 5 mm thick sections acquired from the pulmonary apices to the posterior costophrenic angles. 1 mm axial lung, 5 mm thick coronal and sagittal reformats and 7 mm axial MIP were acquired. For radiation dose reduction, the following was used: automated exposure control, adjustment of mA and/or kV according to patient size. COMPARISON: [facility], CR, XR CHEST 2V, 10/01/2023, 11:21. FINDINGS: Image quality: Diagnostic. Lower Neck: No enlarged lymph nodes. Thyroid: No thyroid nodules which require sonographic follow up, per consensus guidelines. Axillae: Surgical clips in the left axilla. No enlarged lymph nodes. Chest Wall: Surgical clips are seen in the left breast. Bones: Unremarkable. Lungs and Pleura: Bulky mass is seen in the right suprahilar region extending superiorly to the right lung apex. A few small satellite nodules are present. Lesion measures approximately 4.3 x 3.0 cm on axial images (80/3) by approximately 6.9 cm craniocaudal (33/5). Mass obstructs the apical segmental bronchus of the right upper lobe. Mild pleural thickening is seen at the right lung apex without definite invasion of the adjacent chest wall structures. Mild scarring is seen at the anterior left upper lobe, likely related to prior radiation therapy. Small right pleural effusion with mild right basilar atelectasis. A few scattered ground-glass nodules are seen in the central left upper lobe, for example on image 96 of series 3). No pneumothorax. Heart: Heart size is normal. No pericardial effusion. Thoracic Vessels: The aorta and pulmonary arteries demonstrate normal size. Mediastinum and Chloe: Enlarged confluent lymph nodes are seen in the right paratracheal and precarinal region, for example measuring up 3.2 x 3.1 cm (20/2) and 4.9 x 3.1 cm (26/2). Esophagus: No wall thickening. No hiatal hernia. Upper Abdomen: Visualized upper abdomen solid organs and bowel loops appear normal. IMPRESSION: 1. Large right upper lobe pulmonary mass measures up to 6.9 cm in length extending from the suprahilar region to the right lung apex, highly suspicious for malignancy. The mass obstructs the right apical segmental pulmonary bronchus. 2. Bulky right-sided confluent mediastinal lymph nodes. No contralateral or supraclavicular lymph nodes are seen. 3. Small right pleural effusion. 4. Postsurgical changes in the left breast and left axilla. No recurrent axillary lymphadenopathy. ECG Data Attestation: I personally reviewed and interpreted this ECG as follows: Interpretation: Sinus rhythm Ventricular rate is 75 Normal axis Normal QRS Normal QTC No ST T wave changes MDM Narrative Medical decision making narrative: She does have leukocytosis however no specific source of infection is found. Respiratory panel is negative. She does have a right upper lobe lung mass that was seen on a chest x-ray yesterday and again demonstrated today. This is highly concerning for malignancy. I discuss this with her. She understands that the definitive diagnosis will need to come after further evaluation. She does have history of breast cancer. Is followed by oncology. Recommended that she contact her oncologist for a follow-up and also her primary care doctor. We will try Tesmarko Yousifes to try to help with the cough. Will hold on any antibiotics for now. Patient expressed understanding and agreement with plan. Discharge Plan Departure Patient Disposition: Home Clinical Impression: Mass of lung Instructions: Cough (Alternative Therapy), Cough Activity Restrictions/Additional Instructions: Continue to take all of your medications as directed. I have recommended on Saturday you contact both your primary doctor and also your oncologist to discuss the findings of the CT scan today in the chest x-ray that was done as an outpatient. Continue the rest of your medications as directed. Return to the emergency department for new symptoms. Prescriptions: New benzonatate 100 mg capsule 100 mg PO BID-TID PRN (Reason: cough) Qty: 20 0RF No Action calcium carbonate [Tums] 300 mg (750 mg) Tablet,Chewable 600 mg PO BID metformin 1,000 mg Tablet 500 mg PO BID flecainide 100 mg Tablet 50 mg PO Q12H multivitamin Capsule 1 cap PO DAILY esomeprazole magnesium [Nexium] 20 mg Capsule,Delayed Release(Dr/Ec) 20 mg PO DAILY Xarelto 20 mg Tablet 20 mg PO QPM alprazolam 0.5 mg Tablet 0.5 mg PO BEDTIME PRN (Reason: Anxiety) acetaminophen [Tylenol] 325 mg Tablet 325 mg PRN PRN (Reason: Pain (Scale Score 1-3)) rosuvastatin [Crestor] 40 mg Tablet 40 mg PO DAILY diltiazem malate 120 mg Tablet Extended Release 24 Hr 120 mg PO DAILY latanoprost 0.005 % Drops 1 drp OPHTHALMIC (EYE) DAILY magnesium 500 mg Tablet 15 mg PO BID Referrals: Doyle Cullen MD [Primary Care Provider] - Stand Alone Forms: Patient Portal/API
[2023-10-04 15:00] LABS: Hemoglobin 11.3 g/dL (12.0-16.0); Mean Corpuscular HGB Conc 33.1 % (30-36); Mean Corpuscular Volume 81.5 fL (80-100); Red Blood Cell Count 4.16 X10^6/uL (4.0-5.2); Red Cell Distribution Width 12.6 % (11.6-14.8); White Blood Cell Count 14.1 X10^3/uL (4.5-11.0)
[2023-10-04 15:06] LABS: Add Manual Diff / Slide Review YES
[2023-10-04 15:11] LABS: Alanine Aminotransferase 20 IU/L (<35); Albumin 4.5 g/dL (3.5-5.0); Albumin Globulin Ratio 1.5 (1.0-2.8); Alkaline Phosphatase 83 U/L (38-126); Aspartate Aminotransferase 26 IU/L (14-36); BUN Creatinine Ratio 13.4 (6-22); Bilirubin Total 0.6 mg/dL (0.2-1.3); Blood Urea Nitrogen 15 mg/dL (7-17); Calcium 9.5 mg/dL (8.4-10.2); Carbon Dioxide 21 mmol/L (22-32); Chloride 100 mmol/L (98-107); Creatine Kinase 51 U/L (30-135); Estimated Glomerular Filt Rate 49 mL/min (>60); Globulin 3.1 g/dL (1.7-4.1); Glucose 149 mg/dL (80-110); HEMOLYSIS < 15 (0-50); Lipase 57 U/L (23-300); Magnesium 1.9 mg/dL (1.6-2.3); Potassium 4.4 mmol/L (3.4-5.1); Sodium 132 mmol/L (137-145); Total Protein 7.6 g/dL (6.3-8.2)
[2023-10-04 15:20] LABS: NT-proBNP (BNP-Adult 18+) 266 pg/mL (<450)
[2023-10-04 15:23] LABS: Troponin I < 0.012 ng/mL (0.01-0.034)
[2023-10-04 15:25] LABS: Neutrophils Absolute Manual 9447 /uL (3000-5900); Platelet Estimate Adeq; RBC Morphology Normal Morphology; Total Cells Counted 100
[2023-10-04 15:26] LABS: Platelet Count 361 X10^3/uL (150-400)
[2023-10-04 15:55] LABS: Adenovirus Not Detected (Not Detect); B. parapertussis Not Detected (Not Detecte); Bordetella pertussis Not Detected (Not Detect); Chlamydophila pneumoniae Not Detected (Not Detect); Coronavirus 229E Not Detected (Not Detect); Coronavirus HKU1 Not Detected (Not Detect); Coronavirus NL 63 Not Detected (Not Detect); Coronavirus OC43 Not Detected (Not Detect); Human Metapneumovirus Not Detected (Not Detect); Human Rhinovirus/Enterovirus Not Detected (Not Detect); Influenza A Not Detected (Not Detect); Influenza B Not Detected (Not Detect); Mycoplasma pneumoniae Not Detected (Not Detect); Parainfluenza Virus 1 Not Detected (Not Detect); Parainfluenza Virus 2 Not Detected (Not Detect); Parainfluenza Virus 3 Not Detected (Not Detect); Parainfluenza Virus 4 Not Detected (Not Detect); Respiratory Syncytial Virus Not Detected (Not Detect); SARS- CoV-2 Not Detected (Not Detecte)
[2023-10-04 16:10] VITALS: BP 162/72; PULSE 68; RESP 16; O2SAT 94
--- NOTE | 2023-10-04 16:11 | PC.NURSE ---
Pt states that she is feeling a little better, however it still hurts to cough. Sitting up in bed and a&Ox4. Able to speak in full sentences. VS WNL.
[2023-10-04] MEDS: BENZONATATE 100 MG CAPSULE PO (17:58)
[2023-10-04 18:08] VITALS: BP 163/77; PULSE 72; O2SAT 97
== END 2023-10-04 18:16 | disposition home or self-care (01) ==
PROVIDERS: Emergency Provider Emergency Medicine; PCP Family Medicine
DX: R91.8 Other nonspecific abnormal finding of lung field (principal); Z11.52 Encounter for screening for COVID-19; R79.89 Other specified abnormal findings of blood chemistry
CPT/HCPCS: 36415; 71260; 80053; 82550; 83690; 83735; 83880; 84484; 85007; 85025; 87633; 93005; 93010; 99284; Q9967

== ENCOUNTER 2024-08-13 12:00 | Emergency (ER) | payer OTHER, SELFPAY ==
[2024-08-13 12:05] VITALS: PULSE 89; RESP 27; O2SAT 97
--- NOTE | 2024-08-13 12:08 | EKG_ITS ---
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
--- NOTE | 2024-08-13 12:08 | DI.RAD.S_ITS ---
PROCEDURE: XR CHEST 1V INDICATIONS: Chest Pain TECHNIQUE: One view of the chest was acquired. COMPARISON: [facility], CR, XR CHEST 2V, 10/01/2023, 11:21. FINDINGS: Surgical changes and devices: Right Port-A-Cath tip projecting over mid distal SVC. Left. Lungs and pleura: There is a minimal left effusion. Mediastinum: Mediastinal contours appear normal. Heart size is enlarged. Bones and chest wall: No suspicious bony lesions. Overlying soft tissues appear unremarkable. IMPRESSION: Minimal left effusion Dictated by: Sita Salcido M.D. on 08/13/2024 at 12:29 Approved by: Sita Salcido M.D. on 08/13/2024 at 12:32
[2024-08-13 12:09] VITALS: BP 148/69; PULSE 88; RESP 14; TEMP 37.1; O2SAT 97; BMI 24.0
--- NOTE | 2024-08-13 12:18 | ED.DIZZY ---
HPI - Dizziness General Chief Complaint: Dizziness Stated Complaint: Dizzy, SOB Time Seen by Provider: 08/13/24 12:16 Source: patient Mode of arrival: EMS History of Present Illness HPI Narrative: 84-year-old female history of diabetes, hypertension, atrial fibrillation, history of left breast lumpectomy, iron deficiency anemia, R sided Lung CA s/p chemo and radiation presents via EMS from the doctor's office for increased heart rate, shortness of breath, dizzy, pale, blurred vision, shaking and weakness when she woke up this morning. She has has had a nonproductive cough for the past 1-2 days but no fever or chills chest pain, dyspnea on exertion, leg pain, leg swelling, sick contacts nausea, vomiting, diarrhea. Other than what is stated 14 point review of system is negative. Related Data Home Medications ?Medication ?Instructions ?Recorded ?Confirmed calcium carbonate (Tums) 600 mg PO BID 06/11/18 07/26/22 esomeprazole magnesium 20 mg 20 mg PO DAILY 06/11/18 07/26/22 capsule,delayed release (Nexium) flecainide 100 mg tablet 50 mg PO Q12H 06/11/18 07/26/22 metformin 1,000 mg tablet 500 mg PO BID 06/11/18 07/26/22 multivitamin 1 cap PO DAILY 06/11/18 07/26/22 rivaroxaban 20 mg tablet (Xarelto) 20 mg PO QPM 06/11/18 01/25/22 acetaminophen 325 mg tablet 325 mg PRN PRN Pain (Scale Score 03/24/20 07/26/22 (Tylenol) 1-3) alprazolam 0.5 mg tablet 0.5 mg PO BEDTIME PRN Anxiety 03/24/20 07/26/22 rosuvastatin 40 mg tablet (Crestor) 40 mg PO DAILY 03/24/20 07/26/22 diltiazem malate 120 mg 120 mg PO DAILY 01/25/22 07/26/22 tablet,extended release 24 hr latanoprost 0.005 % eye drops 1 drp ophthalmic (eye) DAILY 07/26/22 07/26/22 magnesium 500 mg tablet 15 mg PO BID 07/26/22 07/26/22 Previous Rx's ?Medication ?Instructions ?Recorded benzonatate 100 mg capsule 100 mg PO BID-TID PRN cough #20 10/04/23 caps nitrofurantoin 100 mg PO Q12H 5 days #10 caps 08/13/24 monohydrate/macrocrystals 100 mg capsule (Macrobid) Allergies Allergy/AdvReac Type Severity Reaction Status Date / Time Sulfa (Sulfonamide Allergy Mild Hives Verified 10/24/21 07:22 Antibiotics) (SULFA (SULFONAMIDE ANTIBIOTICS)) ibuprofen Allergy Unknown Passed out Verified 10/24/21 07:22 naproxen (From Aleve) Allergy Unknown Passed out Verified 10/24/21 07:22 timolol Allergy Unknown Verified 08/13/24 12:01 Review of Systems Review of Systems ROS Unobtainable: All systems reviewed & are unremarkable except as noted in HPI and below Patient History Medical History Diabetes Atrial fibrillation Dyslipidemia Surgical History History of hysterectomy Family History Father Colon cancer Grandmother Thyroid cancer Social History household members: spouse Smoking Status: Unknown if ever smoked alcohol intake: current substance use type: does not use Smoking Status: Unknown if ever smoked alcohol intake frequency: a few times a month Exam Narrative Exam Narrative: GENERAL: [84] year old patient appears stated age. Well-developed patient, in mild distress. HEAD: Atraumatic. Normocephalic. EYES: Pupils equal round and reactive. Extraocular motions intact. No scleral icterus. No injection or drainage. ENT: Nose without bleeding, purulent drainage. Throat without erythema, tonsillar hypertrophy or exudate. Airway patent. NECK: Trachea midline. Non tender CARDIOVASCULAR: Regular rate and rhythm without murmurs, gallops, or rubs. RESPIRATORY: Clear to auscultation. Breath sounds equal bilaterally. No wheezes, rales, or rhonchi. GASTROINTESTINAL: Abdomen soft, non-tender, nondistended. EXTREMITIES: No edema or joint tenderness. BACK: Nontender without deformity or crepitance. No flank tenderness. NEURO: AOx3. GCS 15 nonfocal neuro exam [id number] opposite [id number] rapid alternating movements are intact bilateral upper and lower 5/5 strength negative pronator drift SKIN: No rash or erythema of visible areas Initial Vital Signs Initial Vital Signs: Vital Signs Pulse Rate 89 08/13/24 12:05 Respiratory Rate 27 H 08/13/24 12:05 Pulse Oximetry 97 08/13/24 12:05 Scores HEART Score Heart Score history: Slightly Suspicious Heart Score EKG: Normal Heart Score Age: > or = 65 years old Heart Score risk factors: 1-2 risk factors Heart Score troponin: 1-3 times normal limit Heart Score Total: 4 Course Orders Ordered: ED Orders 08/13/24 11:55 Complete Blood Count AUTO DIFF Stat Comprehensive Metabolic Panel Stat Lipase Stat Magnesium Stat NT-proBNP (BNP-Adult 18+) Stat PTT Partial Thromboplastin Naseem Stat Prothrombin Time INR Stat Troponin & CK Cardiac Panel Stat 08/13/24 12:08 XR chest 1V Stat EKG-12 Lead Stat 08/13/24 12:28 CT angio chest PE protocol Stat CT head/brain wo con Stat 08/13/24 12:35 Urine Culture Stat Urine Microscopic Stat 08/13/24 12:39 Covid-19 + FLU A/B + RSV - PCR Stat 08/13/24 13:55 Troponin I Stat Vital Signs Vital signs: Vital Signs - 8 hr 08/13/24 12:05 08/13/24 12:09 08/13/24 12:34 Temperature 98.8 F Pulse Rate 89 88 103 H Respiratory Rate 27 H 14 50 H Blood Pressure 148/69 H Pulse Oximetry 97 97 96 Oxygen Delivery Method Room Air 08/13/24 12:36 08/13/24 12:36 Temperature Pulse Rate 88 Respiratory Rate 27 H Blood Pressure 172/81 H Pulse Oximetry 97 Oxygen Delivery Method MDM - Dizziness Lab Data 08/13/24 11:55 08/13/24 11:55 Labs: Lab Results 08/13/24 08/13/24 08/13/24 Range/Units 11:55 12:35 12:39 WBC 6.3 (4.5-11.0) X10^3/uL RBC 4.29 (4.0-5.2) X10^6/uL Hgb 11.7 L (12.0-16.0) g/dL Hct 37.1 (36-46) % MCV 86.5 (80-100) fL MCH 27.2 (26-34) PG MCHC 31.5 (30-36) % RDW 29.3 H (11.6-14.8) % Plt Count 286 (150-400) X10^3/uL Neut % (Auto) 85.7 H (50-75) % Lymph % (Auto) 7.9 L (25-40) % [place] % (Auto) 6.0 (3-14) % Eos % (Auto) 0.2 L (2-4) % Baso % (Auto) 0.2 (0-2) % Neut # (Auto) 5400 (2627-8819) /uL Lymph # (Auto) 500 L (1267-1480) /uL [place] # (Auto) 400 (0-900) /uL Eos # (Auto) 0 (0-450) /uL Baso # (Auto) 0 (0-100) /uL RBC Morphology See below Anisocytosis 3+ H Macrocytosis 1+ H Target Cells 1+ H Schistocytes 1+ H PT 12.8 H (9.4-12.5) SECONDS INR 1.1 (0.9-1.3) APTT 32 (25.1-36.5) SECONDS Sodium 135 L (137-145) mmol/L Potassium 4.2 (3.4-5.1) mmol/L Chloride 100 (98-107) mmol/L Carbon Dioxide 27 (22-32) mmol/L BUN 15 (7-17) mg/dL Creatinine 0.90 (0.52-1.04) mg/dL Estimated GFR > 60 (>60) mL/min BUN/Creatinine Ratio 16.7 (6-22) Glucose 273 H (70-99) mg/dL Calcium 8.9 (8.4-10.2) mg/dL Magnesium 1.8 (1.6-2.3) mg/dL Total Bilirubin 0.8 (0.2-1.3) mg/dL AST 26 (14-36) IU/L ALT 32 (<35) IU/L Alkaline Phosphatase 61 (38-126) U/L Total Creatine Kinase 21 L (30-135) U/L Troponin I 0.051 H (0.01-0.034) ng/mL NT-Pro-B Natriuret Pep 277 (<450) pg/mL Total Protein 6.2 L (6.3-8.2) g/dL Albumin 4.0 (3.5-5.0) g/dL Globulin 2.2 (1.7-4.1) g/dL Albumin/Globulin Ratio 1.8 (1.0-2.8) Lipase 148 (23-300) U/L Urine RBC 0-1/hpf (0-5/HPF) Urine WBC 5-10/hpf H (0-5/HPF) Ur Squamous Epith Cells 1-5 /hpf (0-5/HPF) Urine Bacteria Moderate (10-30) H (None) Ur Culture Indicated? Specimen cultured Vol Urine Centrifuged 10ml (spun) SARS-CoV-2 (PCR) Negative (Negative) Influenza A (RT-PCR) Flu a negative (NEGATIVE) Influenza B (RT-PCR) Flu b negative (NEGATIVE) RSV (PCR) Negative (Negative) Point of Care Testing Glucose POC 278 Urine Dip Bedside Urine Glucose 1000 mg/dl Bedside Urine Bilirubin - Negative Bedside Urine Ketone - Negative Urine Specific [place] 1.005 Bedside Urine Occult Blood - Negative Bedside Urine pH 6.0 Bedside Urine Protein - Negative Bedside Urine Urobilinogen - Negative Bedside Urine Nitrite - Negative Bedside Urine Leukocytes + [address] scan - head: Radiologist's Impression: [address] [address] [address] Scan Report Signed Patient: Gaby Mackenzie MR#: [id number] : 1940 Acct:[id number] Age/Sex: 84 / F Date of Service: 08/13/24 Loc: ED Accession Number: [id number] Procedure: CT head/brain wo con Ordering Provider: Devendra Payton D.O. PROCEDURE: CT HEAD/BRAIN WO CON INDICATIONS: dizziness, blurred vision TECHNIQUE: Noncontrast 4.5 mm thick angled axial sections acquired from the foramen magnum to the vertex, with coronal and sagittal reformats. For radiation dose reduction, the following was used: automated exposure control, adjustment of mA and/or kV according to patient size. COMPARISON: [facility], CT, CT HEAD/BRAIN WO CON, 06/29/2018, 9:11. FINDINGS: Image quality: Diagnostic. Some images are limited by beam hardening artifacts most notably at the base of the skull. Ventricles and cortical sulci are mildly dilated commonly represents a pattern of atrophy mildly progressed. Moderate areas of low-attenuation in the periventricular and deep white matter, commonly related to chronic small vessel ischemic changes mildly progressed. Mild vascular calcifications bilateral cavernous, supraclinoid carotids unchanged. Mild hyperostosis frontalis interna unchanged. Calcified pineal gland unchanged. The orbits, scalp, paranasal sinuses, mastoid air cells, middle ear cavities normal. No CT evidence of intracranial hemorrhage, mass lesion, mass effect, acute or subacute infarct. IMPRESSION: Atrophy and chronic small vessel ischemic changes mildly progressed. No CT evidence of intracranial hemorrhage. If symptoms persist or worsen, or there is high clinical suspicion of intracranial abnormality, MRI could be performed. CT scan - chest: Radiologist's Impression: [address] [address] [address] Scan Report Signed Patient: Gaby Mackenzie MR#: [id number] : 1940 Acct:[id number] Age/Sex: 84 / F Date of Service: 08/13/24 Loc: ED Accession Number: [id number] Procedure: CT angio chest PE protocol Ordering Provider: Devendra Payton D.O. PROCEDURE: CT ANGIO CHEST PE PROTOCOL INDICATIONS: sob/ hx of breast ca TECHNIQUE: After the administration of intravenous contrast, 2 mm thick sections acquired from the pulmonary apices to the posterior costophrenic angles. 3-dimensional maximum intensity projection (MIP) coronal and sagittal reformats were then acquired through the thorax. For radiation dose reduction, the following was used: automated exposure control, adjustment of mA and/or kV according to patient size. COMPARISON: [facility], CT, CT CHEST W CON, 10/04/2023, 15:53. [facility], CR, XR CHEST 1V, 08/13/2024, 12:05. FINDINGS: Image quality: Diagnostic. Pulmonary arteries: Pulmonary arteries are normal in size, and demonstrate no intraluminal filling defects to suggest central pulmonary embolism. Lower Neck: No enlarged lymph nodes. Thyroid: No thyroid nodules which require sonographic follow up, per consensus guidelines. Axillae: No enlarged lymph nodes. Chest Wall: Unremarkable. Bones: Mildly displaced left 3rd anterior lateral rib fracture, minimally displaced anterior 4th rib fracture. Lungs and Pleura: No pneumothorax or pleural effusions. Medial right upper lobe consolidative opacity in the perihilar region measuring 4.3 x 2.8 cm. This is at site of previous solid-appearing upper lobe mass. Heart: Heart size is normal. No pericardial effusion. Thoracic Vessels: No aortic aneurysm. Mediastinum and Chloe: No enlarged lymph nodes. Esophagus: No wall thickening. Mild hiatal hernia. Upper Abdomen: Cholelithiasis without appearance of cholecystitis. IMPRESSION: No pulmonary embolus. Right perihilar opacity is present. This is suspected to be related to radiation treatment change based on solid-appearing mass within this region on 10/04/2023. However, no interval studies are available for follow-up. Short interval follow-up is recommended to document stability or PET scan if concern for underlying malignancy. ECG Data Interpretation: NSR HR 83 WA 134 QRS [address]-t wave change Unchanged from 10/04/23 MDM Narrative Medical decision making narrative: All lab work, vital signs, nurse triage note, medication list, previous ER visits, and all imaging studies reviewed. CT head showed atrophy and chronic small-vessel ischemic changes Mildly progress no evidence of intracranial hemorrhage. CTA chest showed right perihilar opacity this is suspected to be related to radiation treatment change based on solid appearing mass within this region on 10/04/2023. WBC 6.3 sodium 135 glucose 270 troponin initials at 0.051 and on repeat 0.033. EKG showed normal sinus rhythm heart rate 83 no with no STT wave changes. Urine WBC 5-10 moderate bacteria squamous 1-5. Patient given Rocephin here will be DC to on Macrobid. Differential diagnosis includes CVA TIA subarachnoid subdural epidural pneumonia sepsis STEMI NSTEMI TIA viral lymphadenitis vertigo. On reexamination patient feels much better. Discharge Plan Departure Patient Disposition: Home Clinical Impression: Dizziness, Acute UTI Instructions: DI for Urinary Tract Infection (UTI) Activity Restrictions/Additional Instructions: Return with new or worsening symptoms. Take your medicines as directed. Follow up PCP in 1-2 weeks for re-evaluation. Prescriptions: New nitrofurantoin monohyd/m-cryst [Macrobid] 100 mg capsule 100 mg PO Q12H 5 Days Qty: 10 0RF Rx Instructions: must administer with a meal/food No Action calcium carbonate [Tums] 300 mg (750 mg) Tablet,Chewable 600 mg PO BID metformin 1,000 mg Tablet 500 mg PO BID flecainide 100 mg Tablet 50 mg PO Q12H multivitamin Capsule 1 cap PO DAILY esomeprazole magnesium [Nexium] 20 mg Capsule,Delayed Release(Dr/Ec) 20 mg PO DAILY Xarelto 20 mg Tablet 20 mg PO QPM alprazolam 0.5 mg Tablet 0.5 mg PO BEDTIME PRN (Reason: Anxiety) acetaminophen [Tylenol] 325 mg Tablet 325 mg PRN PRN (Reason: Pain (Scale Score 1-3)) rosuvastatin [Crestor] 40 mg Tablet 40 mg PO DAILY diltiazem malate 120 mg Tablet Extended Release 24 Hr 120 mg PO DAILY latanoprost 0.005 % Drops 1 drp OPHTHALMIC (EYE) DAILY magnesium 500 mg Tablet 15 mg PO BID benzonatate 100 mg capsule 100 mg PO BID-TID PRN (Reason: cough) Qty: 20 0RF Referrals: Doyle Cullen MD [Primary Care Provider, Family Practice] Stand Alone Forms: Patient Portal/API
[2024-08-13 12:25] LABS: Add Manual Diff / Slide Review NO; Basophils Absolute Auto 0 /uL (0-100); Basophils Percent Auto 0.2 % (0-2); Eosinophils Absolute Auto 0 /uL (0-450); Eosinophils Percent Auto 0.2 % (2-4); Hematocrit 37.1 % (36-46); Hemoglobin 11.7 g/dL (12.0-16.0); Lymphocytes Absolute Auto 500 /uL (1100-4500); Lymphocytes Percent Auto 7.9 % (25-40); Mean Corpuscular HGB Conc 31.5 % (30-36); Mean Corpuscular Hemoglobin 27.2 PG (26-34); Mean Corpuscular Volume 86.5 fL (80-100); Monocytes Absolute Auto 400 /uL (0-900); Neutrophils Absolute Auto 5400 /uL (1500-7000); Neutrophils Percent Auto 85.7 % (50-75); Platelet Count 286 X10^3/uL (150-400); Red Blood Cell Count 4.29 X10^6/uL (4.0-5.2); Red Cell Distribution Width 29.3 % (11.6-14.8); White Blood Cell Count 6.3 X10^3/uL (4.5-11.0)
[2024-08-13 12:27] LABS: INR 1.1 (0.9-1.3); Prothrombin Time 12.8 SECONDS (9.4-12.5)
--- NOTE | 2024-08-13 12:28 | DI.CT.S_ITS ---
PROCEDURE: CT HEAD/BRAIN WO CON INDICATIONS: dizziness, blurred vision TECHNIQUE: Noncontrast 4.5 mm thick angled axial sections acquired from the foramen magnum to the vertex, with coronal and sagittal reformats. For radiation dose reduction, the following was used: automated exposure control, adjustment of mA and/or kV according to patient size. COMPARISON: [facility], CT, CT HEAD/BRAIN WO CON, 06/29/2018, 9:11. FINDINGS: Image quality: Diagnostic. Some images are limited by beam hardening artifacts most notably at the base of the skull. Ventricles and cortical sulci are mildly dilated commonly represents a pattern of atrophy mildly progressed. Moderate areas of low-attenuation in the periventricular and deep white matter, commonly related to chronic small vessel ischemic changes mildly progressed. Mild vascular calcifications bilateral cavernous, supraclinoid carotids unchanged. Mild hyperostosis frontalis interna unchanged. Calcified pineal gland unchanged. The orbits, scalp, paranasal sinuses, mastoid air cells, middle ear cavities normal. No CT evidence of intracranial hemorrhage, mass lesion, mass effect, acute or subacute infarct. IMPRESSION: Atrophy and chronic small vessel ischemic changes mildly progressed. No CT evidence of intracranial hemorrhage. If symptoms persist or worsen, or there is high clinical suspicion of intracranial abnormality, MRI could be performed. Dictated by: Noah Gonzalez M.D. on 08/13/2024 at 13:13 Approved by: Noah Gonzalez M.D. on 08/13/2024 at 13:18
--- NOTE | 2024-08-13 12:28 | DI.CT.S_ITS ---
PROCEDURE: CT ANGIO CHEST PE PROTOCOL INDICATIONS: sob/ hx of breast ca TECHNIQUE: After the administration of intravenous contrast, 2 mm thick sections acquired from the pulmonary apices to the posterior costophrenic angles. 3-dimensional maximum intensity projection (MIP) coronal and sagittal reformats were then acquired through the thorax. For radiation dose reduction, the following was used: automated exposure control, adjustment of mA and/or kV according to patient size. COMPARISON: [facility], CT, CT CHEST W CON, 10/04/2023, 15:53. [facility], CR, XR CHEST 1V, 08/13/2024, 12:05. FINDINGS: Image quality: Diagnostic. Pulmonary arteries: Pulmonary arteries are normal in size, and demonstrate no intraluminal filling defects to suggest central pulmonary embolism. Lower Neck: No enlarged lymph nodes. Thyroid: No thyroid nodules which require sonographic follow up, per consensus guidelines. Axillae: No enlarged lymph nodes. Chest Wall: Unremarkable. Bones: Mildly displaced left 3rd anterior lateral rib fracture, minimally displaced anterior 4th rib fracture. Lungs and Pleura: No pneumothorax or pleural effusions. Medial right upper lobe consolidative opacity in the perihilar region measuring 4.3 x 2.8 cm. This is at site of previous solid-appearing upper lobe mass. Heart: Heart size is normal. No pericardial effusion. Thoracic Vessels: No aortic aneurysm. Mediastinum and Chloe: No enlarged lymph nodes. Esophagus: No wall thickening. Mild hiatal hernia. Upper Abdomen: Cholelithiasis without appearance of cholecystitis. IMPRESSION: No pulmonary embolus. Right perihilar opacity is present. This is suspected to be related to radiation treatment change based on solid-appearing mass within this region on 10/04/2023. However, no interval studies are available for follow-up. Short interval follow-up is recommended to document stability or PET scan if concern for underlying malignancy. Left-sided rib fractures as above. Dictated by: Sita Salcido M.D. on 08/13/2024 at 13:51 Approved by: Sita Salcido M.D. on 08/13/2024 at 14:00
[2024-08-13 12:31] LABS: Alanine Aminotransferase 32 IU/L (<35); Albumin Globulin Ratio 1.8 (1.0-2.8); Alkaline Phosphatase 61 U/L (38-126); Aspartate Aminotransferase 26 IU/L (14-36); BUN Creatinine Ratio 16.7 (6-22); Bilirubin Total 0.8 mg/dL (0.2-1.3); Blood Urea Nitrogen 15 mg/dL (7-17); Calcium 8.9 mg/dL (8.4-10.2); Carbon Dioxide 27 mmol/L (22-32); Chloride 100 mmol/L (98-107); Creatine Kinase 21 U/L (30-135); Estimated Glomerular Filt Rate > 60 mL/min (>60); Globulin 2.2 g/dL (1.7-4.1); Glucose 273 mg/dL (70-99); HEMOLYSIS < 15 (0-50); Lipase 148 U/L (23-300); Magnesium 1.8 mg/dL (1.6-2.3); Potassium 4.2 mmol/L (3.4-5.1); Sodium 135 mmol/L (137-145); Total Protein 6.2 g/dL (6.3-8.2)
[2024-08-13 12:34] VITALS: PULSE 103; RESP 50; O2SAT 96
[2024-08-13 12:35] LABS: PTT Partial Thromboplastin Tim 32 SECONDS (25.1-36.5)
[2024-08-13 12:36] VITALS: BP 172/81; PULSE 88; RESP 27; O2SAT 97
[2024-08-13 12:42] LABS: NT-proBNP (BNP-Adult 18+) 277 pg/mL (<450); Troponin I 0.051 ng/mL (0.01-0.034)
--- NOTE | 2024-08-13 12:43 | PC.NURSE ---
Pt reports she takes insulin, metformin and jardiance. BS 59 in morning per ; pt reports she was dizzy at this time and having a hard time walking. Pt reports she ate ice cream last night around 2200. Pt reports she feels just as dizzy now as she did earlier. Pt reports her eyes are blurry. Pt denies headache. Denies CP/SOB.
[2024-08-13 12:44] LABS: Anisocytosis 3+; Target Cells 1+
[2024-08-13 12:45] LABS: Macrocytosis 1+; Schistocytes 1+
--- NOTE | 2024-08-13 12:47 | PC.NURSE ---
Pt family reports no LOC or passing out.
[2024-08-13 13:23] LABS: Influenza A - CEPHEID Flu A NEGATIVE (NEGATIVE); Influenza B - CEPHEID Flu B NEGATIVE (NEGATIVE); Respiratory Syncytial Virus Negative (Negative)
[2024-08-13 13:30] LABS: Bacteria Urine Moderate (10-30); RBC Urine 0-1/HPF (0-5/HPF); Urine Volume 10mL (spun); WBC Urine 5-10/HPF (0-5/HPF)
[2024-08-13 13:31] LABS: Culture Indicated Urine Specimen Cultured; Squamous Epithelial Cell Urine 1-5 /HPF (0-5/HPF)
[2024-08-13 13:34] LABS: COVID-19 CEPHEID 4-PLEX PCR Negative (Negative)
[2024-08-13] MEDS: cefTRIAXone 1,000 MG in SODIUM CHLORIDE 0.9% 100 ML 200 MG IV (14:25)
[2024-08-13 14:45] LABS: Troponin I 0.033 ng/mL (0.01-0.034)
[2024-08-13 15:32] VITALS: BP 132/65; PULSE 93; RESP 16; TEMP 36.6; O2SAT 95
== END 2024-08-13 15:33 | disposition home or self-care (01) ==
PROVIDERS: Emergency Provider Family Medicine; PCP Family Medicine
DX: R42 Dizziness and giddiness (principal); N39.0 Urinary tract infection, site not specified; R05.9 Cough, unspecified; R06.02 Shortness of breath; H53.8 Other visual disturbances
CPT/HCPCS: 0241U; 36415; 70450; 71045; 71275; 80053; 81003; 81015; 82550; 82962; 83690; 83735; 83880; 84484; 85025; 85610; 85730; 87086; 93005; 93010; 96365; 99284; J0696; Q9967

== ENCOUNTER → 2024-12-11 09:23 | Outpatient (CLI) | payer OTHER, SELFPAY ==
[2024-12-11 10:39] LABS: Alanine Aminotransferase 19 IU/L (<35); Albumin 4.8 g/dL (3.5-5.0); Albumin Globulin Ratio 1.9 (1.0-2.8); Alkaline Phosphatase 74 U/L (38-126); Blood Urea Nitrogen 16 mg/dL (7-17); Calcium 9.6 mg/dL (8.4-10.2); Carbon Dioxide 27 mmol/L (22-32); Chloride 101 mmol/L (98-107); Estimated Glomerular Filt Rate 50 mL/min (>60); Globulin 2.5 g/dL (1.7-4.1); Glucose 193 mg/dL (70-99); HEMOLYSIS < 15 (0-50); Magnesium 2.0 mg/dL (1.6-2.3); Potassium 4.4 mmol/L (3.4-5.1); Sodium 138 mmol/L (137-145); Total Protein 7.3 g/dL (6.3-8.2)
== END ==
PROVIDERS: PCP Family Medicine; Referring Provider Family Medicine; Visit Provider Specialist
DX: I48.0 Paroxysmal atrial fibrillation (principal); E78.2 Mixed hyperlipidemia
CPT/HCPCS: 36415; 80053; 80299; 83735